=== PATIENT | female | born 1975 | race Hispanic/Latino ===

== ENCOUNTER 2019-10-09 15:57 | Inpatient (IN) | payer OTHER ==
[~2019-10-09] VITALS: Ht 165.1 cm; Wt 84.0 kg
[2019-10-09 18:00] LABS: BASOPHILS # (AUTO) 0.1 (0.0-0.1); BASOPHILS % 0.8 % (0.0-1.0); EOSINOPHILS # (AUTO) 0.3 (0.0-0.4); HEMATOCRIT 30.4 % (34.2-44.1); HEMOGLOBIN 10.1 g/dL (12.0-16.0); LYMPHOCYTES % 20.4 % (18.0-39.1); MEAN CORPUSCULAR HEMOGLOBIN 30.3 pg (28-32); MEAN CORPUSCULAR HGB CONC 33.2 g/dL (31-35); MEAN CORPUSCULAR VOLUME 91.3 fL (81-99); MONOCYTES # (AUTO) 0.7 (0.2-0.8); MONOCYTES % 7.6 % (4.4-11.3); NEUTROPHILS # (AUTO) 6.6 (2.1-6.9); NEUTROPHILS % 67.9 % (38.7-80.0); PLATELET COUNT 153 x10e3/uL (140-360); RED BLOOD COUNT 3.33 x10e6/uL (3.6-5.1); RED CELL DISTRIBUTION WIDTH 12.8 % (11.7-14.4)
[2019-10-09 18:13] LABS: ALBUMIN 2.7 g/dL (3.5-5.0); ALBUMIN/GLOBULIN RATIO 0.7 (0.8-2.0); ANION GAP 20.2 mmol/L (8-16); CREATININE, SERUM 5.3 mg/dL (0.57-1.11)
[2019-10-09] MEDS ORDERED: HYDRALAZINE HCL 20 MG/ML VIAL IV PRN ×2 (18:15→21:30)
[2019-10-09 18:17] LABS: INR 1.02; PROTHROMBIN TIME 13.9 seconds (11.9-14.5)
[2019-10-09 18:18] LABS: PARTIAL THROMBOPLASTIN TIME 36.5 seconds (23.8-35.5)
[2019-10-09 18:24] LABS: CALCIUM 5.6 mg/dL (8.4-10.2); POTASSIUM 5.2 mmol/L (3.5-5.1)
[2019-10-09 18:25] LABS: MAGNESIUM 1.4 MG/DL (1.3-2.1); PHOSPHORUS 9.6 MG/DL (2.3-4.7)
[2019-10-09] MEDS ORDERED: SODIUM CHLORIDE 0.9% 1000ML 2,000 ML IV ONE (18:30)
[2019-10-09] MEDS ORDERED: CALCIUM GLUCONATE 10% INJ 9.3 MEQ in SODIUM CHLORIDE 0.9% 100 ML 100 ML IV ONE (18:30)
[2019-10-09] MEDS ORDERED: MAGNESIUM SULFATE 2GM/50ML 50 ML IV ONE ×2 (18:30→22:30)
[2019-10-09 18:44] LABS: FERRITIN 244.13 ng/mL (4.63-204.00)
--- NOTE | 2019-10-09 19:26 | NUR ---
patient recieved in room
[2019-10-09] MEDS: CALCIUM ACETATE 667 MG GELCAP PO SCH ×2 (19:54→23:46)
[2019-10-09] MEDS ORDERED: ACETAMINOPHEN 325 MG TAB PO PRN (21:15)
[2019-10-09] MEDS ORDERED: CALCIUM CARBONATE 500 MG CHEWABLE TABS PO SCH (21:15)
[2019-10-09] MEDS ORDERED: ONDANSETRON HCL INJ 2MG/ML 2ML 2 MG/ML VIAL IV PRN (21:15)
[2019-10-09 21:46] LABS: CREATININE,URINE RANDOM 73.4 mg/dL (47-110)
[2019-10-09 23:36] LABS: TOTAL PROTEIN, URINE 844.8 mg/dL (1-14)
[2019-10-09] MEDS: SODIUM BICARBONATE 650 MG TAB PO SCH (23:54)
[2019-10-09] MEDS: SODIUM CHLORIDE 0.9% 1000ML 1,000 ML IV SCH (23:54)
[2019-10-10 05:44] LABS: BASOPHILS # (AUTO) 0.1 (0.0-0.1); BASOPHILS % 1.2 % (0.0-1.0); EOSINOPHILS # (AUTO) 0.2 (0.0-0.4); HEMATOCRIT 28.2 % (34.2-44.1); HEMOGLOBIN 9.1 g/dL (12.0-16.0); LYMPHOCYTES # (AUTO) 1.6 (1.0-3.2); LYMPHOCYTES % 22.4 % (18.0-39.1); MEAN CORPUSCULAR HEMOGLOBIN 29.8 pg (28-32); MEAN CORPUSCULAR HGB CONC 32.3 g/dL (31-35); MEAN CORPUSCULAR VOLUME 92.5 fL (81-99); MONOCYTES # (AUTO) 0.7 (0.2-0.8); MONOCYTES % 10.3 % (4.4-11.3); NEUTROPHILS # (AUTO) 4.4 (2.1-6.9); PLATELET COUNT 139 x10e3/uL (140-360); RED BLOOD COUNT 3.05 x10e6/uL (3.6-5.1); RED CELL DISTRIBUTION WIDTH 12.8 % (11.7-14.4)
[2019-10-10] MEDS: SODIUM CHLORIDE 0.9% 1000ML 1,000 ML IV SCH ×3 (05:58→19:57)
[2019-10-10 06:07] LABS: ALBUMIN 2.3 g/dL (3.5-5.0); ALBUMIN/GLOBULIN RATIO 0.7 (0.8-2.0); CREATININE, SERUM 4.93 mg/dL (0.57-1.11); PHOSPHORUS 8.2 MG/DL (2.3-4.7)
[2019-10-10 06:13] LABS: CALCIUM 6.3 mg/dL (8.4-10.2)
--- NOTE | 2019-10-10 07:04 | NUR ---
DR ASHOK HARRIS FOR CRITICAL CALCIUM
--- NOTE | 2019-10-10 07:30 | NUR ---
DISCUSSED WITH DR PULIDO CHEMISTY LABS THIS MORNING, RECIEVED ORDERS FOR CRITICAL CALCIUM.
--- NOTE | 2019-10-10 07:31 | NUR ---
REPORT GIVEN TO MARGIE HANDLEY
[2019-10-10] MEDS ORDERED: CALCIUM CARBONATE 500 MG CHEWABLE TABS PO SCH (08:00)
[2019-10-10] MEDS ORDERED: SODIUM CHLORIDE 0.9% 1000ML 1,000 ML IV ONE (08:15)
[2019-10-10] MEDS ORDERED: SOD POLYSTYRENE SULFONATE SUSP 15 GM/60 ML BTL PO ONE (08:15)
[2019-10-10] MEDS ORDERED: INSULIN REGULAR, HUMAN 100 UNIT/1 ML 3ML VIAL IV ONE (08:15)
[2019-10-10] MEDS ORDERED: ALBUTEROL SULF 0.083% NEB SOLN 3 ML NEB NEB STA (08:15)
[2019-10-10] MEDS ORDERED: DEXTROSE 50% SYRINGE 50 ML IV ONE (08:15)
[2019-10-10] MEDS ORDERED: SODIUM BICARBONATE 8.4% 50 ML VIAL IV STA (08:15)
[2019-10-10] MEDS: SODIUM BICARBONATE 650 MG TAB PO SCH ×2 (08:27→20:03)
[2019-10-10] MEDS: CALCIUM ACETATE 667 MG GELCAP PO SCH ×3 (09:07→20:03)
[2019-10-10] MEDS ORDERED: ONDANSETRON HCL8 MG PO (09:14)
[2019-10-10] MEDS ORDERED: HYDROXYCHLOROQ200 MG PO (09:14)
[2019-10-10] MEDS ORDERED: FUROSEMIDE40 MG PO (09:14)
[2019-10-10] MEDS ORDERED: ATORVASTATIN CA10 MG PO (09:14)
[2019-10-10] MEDS ORDERED: LOSARTAN POTAS100 MG PO (09:14)
[2019-10-10] MEDS ORDERED: CALCIUM GLUCONATE 10% INJ 13.95 MEQ in SODIUM CHLORIDE 0.9% 100 ML 100 ML IV ONE (09:15)
--- NOTE | 2019-10-10 10:22 | Diagnostic Imaging Report ---
EXAM: Renal Ultrasound INDICATION: ^ARF ^Y COMPARISON: None TECHNIQUE: Transverse and longitudinal images of the kidneys and bladder were obtained. FINDINGS: Right Kidney: Length: 9.8 cm Appearance: Increased echogenicity. Collecting system: No hydronephrosis Stones: None Cyst/Mass: None Left Kidney: Length: 9.4 cm Appearance: Slightly increased echogenicity. Collecting system: No hydronephrosis Stones: None Cyst/Mass: None Bladder: No mass or calculus. Bilateral ureteral jets visualized. Prevoid volume estimate of 542cc. IMPRESSION: No hydronephrosis or renal calculi. Increased renal parenchymal echogenicity right greater than left, compatible with medical renal disease. Signed by: Milli Burgess MD on 10/10/2019 10:19 AM
[2019-10-10] MEDS ORDERED: METHYLPREDNISOLONE SOD SUCC 1,000 MG/8 ML VIAL IV SCH (11:15)
[2019-10-10] MEDS: METHYLPREDNISOLONE SOD SUCC 1,000 MG in SODIUM CHLORIDE 0.9% 100 ML IV SCH (12:00)
--- NOTE | 2019-10-10 12:00 | Consultation ---
DATE OF CONSULTATION: 10/10/2019 Renal Consultation REASON FOR CONSULTATION: Acute kidney injury. HISTORY OF PRESENT ILLNESS: A 44-year-old female with history of lupus and hypertension, was sent from her primary care's office to [facility] for abnormal labs. The patient denies having any history of kidney disease in the past and has had hypertension for approximately 2 years. The patient developed upper respiratory infection, developed nausea, fatigue, weakness, some anorexia, went to see her primary care physician and was sent to the hospital. The patient denies taking any txst-lkg-qdazqtw medications including NSAIDs. REVIEW OF SYSTEMS: A 14-point review of systems completed. All systems negative other than mentioned in the HPI. PAST MEDICAL HISTORY: 1. SLE. 2. Hypertension. PAST SURGICAL HISTORY: Valve replacement. SOCIAL HISTORY: No tobacco. No alcohol. No IV drugs. FAMILY HISTORY: No family history of kidney disease or lupus. ALLERGIES: NO KNOWN DRUG ALLERGIES. CURRENT MEDICATIONS: See list. PHYSICAL EXAMINATION: VITAL SIGNS: Blood pressure 145/94, pulse 75, respiratory rate 18, and temperature 98.7. GENERAL: No apparent distress. HEENT: Oropharynx clear. No scleral icterus. No peripheral edema. NECK: Supple. No elevation in jugular venous pressure. No lymphadenopathy. CHEST: Clear to auscultation anteriorly bilaterally. CARDIOVASCULAR: Regular rate and rhythm. No murmurs or rubs. ABDOMEN: Soft. Positive bowel sounds. No tenderness. No rebound. EXTREMITIES: No edema. No clubbing or cyanosis. SKIN: Warm. LABORATORY DATA: Sodium 140, potassium 4, chloride 113, CO2 14, BUN 61, creatinine 4.93 down from 5.3, estimated GFR of 10, calcium 6.3, phosphorus 8.2, and albumin 2.3. White count 6.9, hemoglobin 9.1, hematocrit 28.2, and platelets 13. Urine protein/creatinine ratio 11. ASSESSMENT AND PLAN: 1. Acute kidney injury versus chronic kidney disease, suspect the patient may have lupus nephritis. She has nephrotic range proteinuria. We will do renal ultrasound if her kidneys are not atrophic. We will do kidney biopsy. We will check serologies and may consider starting the patient empirically on prednisone depending on the above studies. 2. Euvolemic on exam. 3. Hypertension. We will titrate blood pressure medications. 4. Metabolic acidosis. We will put the patient on sodium bicarbonate. 5. Anemia with iron saturation of 16. We will give IV iron. May need Epogen. 6. Hyperphosphatemia. The patient on PhosLo. MD SHASHI Rodriguez/JANE /[id number]
[2019-10-10 12:13] LABS: BILIRUBIN,URINE NEGATIVE (NEGATIVE); CLARITY,URINE HAZY (CLEAR); COLOR,URINE YELLOW (YELLOW); KETONES,URINE NEGATIVE (NEGATIVE); LEUKOCYTE ESTERASE ,URINE NEGATIVE (NEGATIVE); NITRITE,URINE NEGATIVE (NEGATIVE); PROTEIN,URINE DIPSTICK 3+ (NEGATIVE); URINE UROBILINOGEN 0.2 mg/dL (0.2 - 1)
[2019-10-10 12:14] LABS: BACTERIA,URINE MANY /HPF; EPITHELIAL CELLS,URINE MANY /LPF
--- NOTE | 2019-10-10 13:20 | NUR ---
PATIENT RECEIVED FROM ER PER WHEEL CHAIR. ABLE TO TRANSFER SELF FROM WHEEL CHAIR TO BED. ALERT AND VERBALLY RESPONSIVE, MOSTLY ALBANIAN SPEAKING. DENIED PAIN AT THIS TIME. SKIN WARM AND DRY TO TOUCH, RESPIRATION EVEN AND UNLABORED. TELEMETRY BOX 19 IN PLACED. PATIENT ORIENTED TO SURROUNDING. BED IN LOWER POSITION AND LOCKED, CALL LIGHT AT REACH. INSTRUCTED TO CALL FOR ASSISTANCE NEEDED.
[2019-10-10 13:35] VITALS: BP 151/89
[2019-10-10 13:42] VITALS: BP 151/89
[2019-10-10 14:08] VITALS: BP 151/89
[2019-10-10 15:19] VITALS: BP 167/92
--- NOTE | 2019-10-10 16:06 | NUR ---
PATIENT IN BED RESTING WITH EYES CLOSED, NO DISTRESS NOTED. CALL LIGHT AT REACH.
--- NOTE | 2019-10-10 19:00 | NUR ---
RECEIVED PATIENT IN BEDSIDE REPORT. PATIENT RESTING IN BED AT THIS TIME. NO PAIN REPORTED. NO S&S OF DISTRESS NOTED. BED LOCKED IN LOWEST POSITION, SIDE RAILS UPX2, CALL LIGHT IN REACH.
[2019-10-10 20:00] VITALS: BP 173/99
[2019-10-10] MEDS: CALCIUM CARBONATE 500 MG CHEWABLE TABS PO SCH (20:03)
[2019-10-10 20:09] VITALS: BP 173/99
[2019-10-10] MEDS: AMLODIPINE BESYLATE 10 MG TAB PO SCH (20:09)
[2019-10-10] MEDS: ATORVASTATIN 10 MG TAB PO SCH (20:09)
--- NOTE | 2019-10-10 21:30 | NUR ---
PATIENT REFUSED HIBICLENS SHOWER AT THIS TIME, STATING IT WAS TOO COLD. WILL PROVIDE HCG WIPES IN AM PRIOR TO PROCEDURE.
--- NOTE | 2019-10-11 02:50 | History and Physical ---
HISTORY OF PRESENT ILLNESS: The patient was seen early this morning at bedside with the nursing staff. This is a 44-year-old female, who has a history of lupus, who apparently was on treatment seeing a ferris wheel attendant in [place], Dr. Dumont. The patient was sent in by her primary care physician due to abnormal chemistries to the [facility] to be further evaluated. The patient was admitted, found to have elevated creatinine, hypocalcemia, hyperphosphatemia. After further discussion with the patient and interviewing her, she reports that she was on immunosuppression as before, but she quit taking them about May 2019 of this year. She was told by her ferris wheel attendant to discontinue the medications and that her labs were found to be "normal." The patient now reports with worsening renal failure. She denies any systemic pain or any other complaints. Denies any petechial rash. No fever, no cough, no congestion. Denies any NSAID usage or any frox-glm-bxymswe medications including no herbal supplements. The patient is seen and evaluated at bedside on the medical floor. The patient is currently doing well with no other issues at this time. Nephrology was consulted. There is some concern that the patient may have some lupus nephritis, in which the patient was started on Solu-Medrol pulse doses. REVIEW OF SYSTEMS: Pertinent positives: Generalized weakness, fatigue. Pertinent negatives: Denies any chest pain, palpitation, nausea, vomiting, diarrhea, dysuria, hematuria, frequency, urgency, lightheadedness, dizziness, abdominal pain, headaches, shortness of breath, cough, congestion, fever, or any other complaints. The rest of 14-point review of systems are reviewed with the patient and are negative. ALLERGIES: NO KNOWN DRUG ALLERGIES. HOME MEDICATIONS: Lipitor, Lasix, hydroxychloroquine, and losartan. PAST MEDICAL HISTORY: She has systemic lupus, hyperlipidemia, and hypertension. PAST SURGICAL HISTORY: Reports none. FAMILY HISTORY: Hypertension, diabetes. SOCIAL HISTORY: No drugs. No alcohol. Does not smoke. Good social support. LABORATORY FINDINGS: Show white count 6.9, hemoglobin 9.1, hematocrit 28, platelets of 139. Coagulation; PT 13, INR 1, PTT 36. Chemistries; sodium 140, potassium 4, chloride 113, bicarb 14, anion gap of 17, BUN 61, creatinine is 4.9, glucose 77, calcium 6.3, phosphorus 8.2, magnesium 2. Iron saturation 16%, ferritin 244. LFTs within normal range. Troponin 0.12. Albumin was 2.3. Urinalysis, concerning for underlying UTI. Microbiology, none performed. IMAGING STUDIES: Renal ultrasound shows a right kidney of 9.8 cm and left kidney of 9.4 cm. No hydronephrosis or renal calculi. Increased renal parenchymal echogenicity, right greater than left, compatible with medical renal disease. PHYSICAL EXAMINATION: VITAL SIGNS: Temperature is 97.8, pulse 85, respiratory rate is 18, blood pressure is 167/92, and pulse ox 97% on room air. GENERAL: No acute distress. Alert and oriented x3. Cooperative on examination. HEENT: Head is normocephalic, atraumatic. Eyes; pupils are equal, round, and reactive to light bilaterally. Extraocular movements intact bilaterally. NECK: Supple. Good range of motion. Throat; no evidence of any erythema or exudates in the posterior pharynx. Has poor dentition. PULMONARY: Clear to auscultation bilaterally. No wheezing, rales, or rhonchi. No crackles appreciated. CARDIOVASCULAR: Positive S1 and S2. No murmurs, rubs, or gallops appreciated. ABDOMEN: Soft, nondistended, nontender to palpation. Bowel sounds present. MUSCULOSKELETAL: Strength is 5/5 throughout. No evidence of any muscle deficits on examination. No weakness appreciated. NEUROLOGIC: Cranial nerves II through XII grossly intact. No evidence of any neurological deficits on exam. SKIN: Intact, warm to touch. Good cap refill. PSYCHIATRIC: Normal affect and mood. EXTREMITIES: No edema. Good range of motion throughout. IMPRESSION/PLAN: 1. Acute kidney injury on chronic kidney disease stage 4-we do not know the patient's true baseline creatinine, but it seems that the patient likely has significant chronic disease. After further interview with the patient, the patient apparently had lupus, was on treatment apparently, quit taking treatment back in May of this year. My concern, she may have developed lupus nephritis and also likely has systemic lupus. At this time, we will continue with IV fluids. Nephrology was consulted. Scheduled for renal biopsy to determine the stage of her lupus nephritis, which is the likely culprit of her renal failure. Nephrology was consulted. We will monitor very closely. 2. Secondary hyperparathyroidism-intact PTH ordered, phosphorus was elevated, started on PhosLo. Hypocalcemia, started on calcium carbonate. 3. Metabolic acidosis secondary to renal failure. 4. Hypertension-start on oral Norvasc, hold losartan due to acute renal failure. 5. Anemia of chronic disease as well as chronic kidney disease-current hemoglobin is 9.1. Iron saturation was found to be 16%. We will start her on Ferrlecit, iron infusion, and eventually was started on some Procrit. 6. Type 2 diabetes-insulin sliding scale, Accu-Cheks, A1c. 7. Systemic lupus-continue with hydroxychloroquine, currently receiving Solu-Medrol 1 g daily x3 days for concerns for lupus nephritis. 8. Nutrition: Diabetic. 9. PT/OT evaluation. 10. Lovenox for DVT prophylaxis after renal biopsy. 11. Consultants: Nephrology, which I discussed this plan of care with him over the phone. MD RUPESH Butt/JANE /[id number]
[2019-10-11 04:00] VITALS: BP 133/74
[2019-10-11 06:11] LABS: HEMATOCRIT 27.5 % (34.2-44.1); HEMOGLOBIN 9.2 g/dL (12.0-16.0); LYMPHOCYTES # (AUTO) 0.7 (1.0-3.2); LYMPHOCYTES % 13.4 % (18.0-39.1); MEAN CORPUSCULAR HEMOGLOBIN 30.2 pg (28-32); MEAN CORPUSCULAR HGB CONC 33.5 g/dL (31-35); MEAN CORPUSCULAR VOLUME 90.2 fL (81-99); MONOCYTES % 0.4 % (4.4-11.3); NEUTROPHILS # (AUTO) 4.5 (2.1-6.9); NEUTROPHILS % 85.6 % (38.7-80.0); PLATELET COUNT 159 x10e3/uL (140-360); RED BLOOD COUNT 3.05 x10e6/uL (3.6-5.1); RED CELL DISTRIBUTION WIDTH 12.6 % (11.7-14.4)
[2019-10-11 06:27] LABS: INR 1.02; PROTHROMBIN TIME 13.9 seconds (11.9-14.5)
[2019-10-11 06:36] LABS: ANION GAP 16.1 mmol/L (8-16); CALCIUM 7.3 mg/dL (8.4-10.2); CREATININE, SERUM 5.12 mg/dL (0.57-1.11); POTASSIUM 4.1 mmol/L (3.5-5.1)
[2019-10-11 08:00] VITALS: BP 135/82
[2019-10-11] MEDS: AMLODIPINE BESYLATE 10 MG TAB PO SCH (08:31)
[2019-10-11] MEDS: CALCIUM ACETATE 667 MG GELCAP PO SCH ×3 (08:31→20:28)
[2019-10-11] MEDS: SODIUM BICARBONATE 650 MG TAB PO SCH ×2 (08:32→17:32)
[2019-10-11] MEDS: HYDROXYCHLOROQUINE SULFATE 200 MG TAB PO SCH (08:32)
[2019-10-11] MEDS ORDERED: FUROSEMIDE 40 MG TAB PO SCH (09:00)
[2019-10-11] MEDS ORDERED: SODIUM BICARBONATE 8.4% 150 ML in STERILE WATER IV SOLN 1,000 ML IV ONE (09:30)
--- NOTE | 2019-10-11 09:40 | NUR ---
Pt going for liver biopsy at this time. 0 s/s acute distress noted at time of transfer.
[2019-10-11] MEDS ORDERED: LIDOCAINE HCL 1% LOCAL INJ 20 ML VIAL ONE (09:43)
[2019-10-11] MEDS ORDERED: FENTANYL CITRATE/PF 100MCG/2 ML INJ ONE (10:54)
[2019-10-11] MEDS ORDERED: SODIUM CHLORIDE 0.9% 500ML 500 ML ONE (10:55)
[2019-10-11] MEDS ORDERED: MIDAZOLAM HCL 2 MG/2 ML VIAL ONE (11:00)
[2019-10-11] MEDS: SODIUM FERRIC GLUCONATE COMPLX 125 MG in SODIUM CHLORIDE 0.9% 100 ML 100 ML IV SCH (12:30)
--- NOTE | 2019-10-11 12:30 | NUR ---
Pt returned to floor from renal biopsy at this time. Pt aox4 and able to verbalize needs. Denies any pain at this time. Renal biopsy was done on the left side and was closed with gel foam. Breaths are even and unlabored.
--- OUTSIDE RECORDS SUMMARY | 2019-10-11 14:00 | XMS REPORT ---
Author Author [facility] Address Unknown Phone Unavailable Care Team Providers Care Retail Sales Director Name Role Phone Debra LUCAS Unavailable Unavailable Payers Payer Name Policy Type Policy Number Effective Date Expiration Date Problems This patient has no known problems. Allergies, Adverse Reactions, Alerts Allergy Name Allergy Type Status Severity Reaction(s) Onset Date Inactive Date Treating Clinician Comments No Known Allergies DA Active U 2015-10-17 00:00:00 Medications This patient has no known medications. Results Test Description Test Time Test Comments Text Results Atomic Results Result Comments US RENAL RETROPERITONEAL COMP 2019-10-10 10:17:00 [facility] [address] [address] Patient Name: FEDERICO OWENS MR #: [id number] : 1975 Age/Sex: 44/F Req #: [id number] Adm Physician: OMA LUCAS MD Ordered by: LEORA PULIDO MD Report #: [id number] Location: [facility] Room/Bed: [place] [address] Procedure: [id number] US/US RENAL RETROPERITONEAL COMP Exam Date: Exam Time: REPORT STATUS: Signed EXAM: Renal Ultrasound INDICATION: ARF Y COMPARISON: None TECHNIQUE: Transverse and longitudinal images of the kidneys and bladder were obtained. FINDINGS: Right Kidney: Length: 9.8 cm Appearance: Increased echogenicity. Collecting system: No hydronephrosis Stones: None Cyst/Mass: None Left Kidney: Length: 9.4 cm Appearance: Slightly increased echogenicity. Collecting system: No hydronephrosis Stones: None Cyst/Mass: None Bladder: No mass or calculus. Bilateral ureteral jets visualized. Prevoid volume estimate of 542cc. IMPRESSION: No hydronephrosis or renal calculi. Increased renal parenchymal echogenicity right greater than left, compatible with medical renal disease. Signed by: Celina Pollard MD on 10/10/2019 10:19 AM Dictated By: CELINA POLLARD MD [id number] Transcribed By: LUBA on 10/10/19 1019 COPY TO: LEORA PULIDO MD
--- OUTSIDE RECORDS SUMMARY | 2019-10-11 14:00 | XMS REPORT ---
Author Author Admin, Humphrey Organization [facility] Address [address] [address] Phone Allergies, Adverse Reactions, Alerts Allergy Name Reaction Description Start Date Severity Status Provider No Known Allergies Carmel Tee Conditions or Problems Problem Name Problem Code Onset Date Status Entry Date Provider Comment Standard Description Annotate Lupus 710.0 Active Sedrick Luna MD Systemic lupus erythematosus Proteinuria 791.0 Active Sedrick Luna MD Proteinuria Medication List Medication Instructions Start Date Stop Date Generic Name NDC Status Provider Patient Instruction No Drug Therapy Prescribed - none known did ask Carmel Tee Vital Signs Date Name Value Unit Range Description blood pressure, diastolic 89 mm[Hg] BP buchanan blood pressure, systolic 136 mm[Hg] BP sys height E&M 64 [in_us] Bdy height pulse rate E&M 89 /min Heart rate respiratory rate E&M 20 /min Resp rate temperature E&M 98.4 [degF] Body temperature weight E&M 176.20 [lb_av] Weight Measured Diagnostic Results Date Name Value Unit Range Description Append: Acute Visit - Lupus/proteinuria - Urinalysis nitrite, urine, semiquantitative negative urobilinogen, urine, semiquantitative (dipstick) negative protein, urine, semiquantitative (dipstick) 4+ specific gravity, urine 1.025 pH, urine, semiquantitative 5.5 blood in urine (hemoglobin) by dipstick negative bilirubin, urine negative glucose, urine, semiquantitative negative urine color yellow leukocyte esterase, urine, by dipstick negative appearance, urine clear ketones, urine, by test strip negative Encounters Date Encounter Provider Code Facility 14:34:40 CDT Est Patient Exp Problem - 04403 Sedrick Luna MD CPT-26943 [facility] 17:01:26 CDT New Patient Detailed - 00281 Sedrick Luna MD CPT-62938 [facility] Procedures Code Procedure Name Date Entry Date Standard Description CPT-85553 Urinalysis - Dip only - In House 17:02:59 CDT
[2019-10-11] MEDS: METHYLPREDNISOLONE SOD SUCC 1,000 MG in SODIUM CHLORIDE 0.9% 100 ML IV SCH (14:11)
[2019-10-11 16:00] VITALS: BP 120/74
--- NOTE | 2019-10-11 17:05 | Diagnostic Imaging Report ---
PROCEDURE: Ultrasound-guided biopsy Procedural Personnel Attending physician(s): Milli Burgess MD Fellow physician(s): None Resident physician(s): None Advanced practice provider(s): None Pre-procedure diagnosis: Acute kidney injury Post-procedure diagnosis: Same Indication: Organ dysfunction Previous biopsy of same target (QCDR): No Additional clinical history: None Complications: No immediate complications. IMPRESSION: Ultrasound-guided nonfocal biopsy of the left renal cortex. Plan: Specimen(s) sent for evaluation. PROCEDURE SUMMARY: - Percutaneous US-guided nonfocal left renal biopsy - Additional procedure(s): None PROCEDURE DETAILS: Pre-procedure Reference imaging for biopsy target: None Consent: Informed consent for the procedure including risks, benefits and alternatives was obtained and time-out was performed prior to the procedure. Preparation: The site was prepared and draped using maximal sterile barrier technique including cutaneous antisepsis. Anesthesia/sedation Level of anesthesia/sedation: Moderate sedation (conscious sedation) 1mg Versed, 50mcg Fentanyl Anesthesia/sedation administered by: Independent trained observer under attending supervision with continuous monitoring of the patient?s level of consciousness and physiologic status Total intra-service sedation time (minutes): 30 Imaging prior to biopsy The patient was positioned prone. Initial ultrasound was performed. Biopsy target: Left renal cortex Other findings: None Biopsy Local anesthesia was administered. Under US guidance, the biopsy needle was advanced to the target and biopsy was performed. Coaxial needle: 17 gauge Core needle biopsy device: Creditableno Core needle size: 18 Number of core specimens: 3 On-site biopsy touch preparation: Yes Additional sampling recommendations: None Preliminary assessment of sample adequacy: Adequate Needle removal The biopsy needle was removed and a sterile dressing was applied. Tract embolization: Gelfoam slurry Imaging following biopsy Immediate post-biopsy ultrasound was performed. Post-biopsy imaging findings: No hematoma Additional Details Additional description of procedure: None Equipment details: None Specimens removed: Biopsy samples as detailed above Estimated blood loss (mL): Less than 10 Standardized report: [id number] Attestation Signer name: Milli Burgess MD I attest that I was present for the entire procedure. I reviewed the stored images and agree with the report as written. Signed by: Milli Burgess MD on 10/11/2019 5:01 PM
[2019-10-11 19:15] VITALS: BP 135/81
--- NOTE | 2019-10-11 19:15 | NUR ---
patient received awake, alert, lying quietly in bed. vss. no c/o pain noted. ivf continue to infuse without difficulty. pm assessment complete. family noted at the bedside. patient instructed to call for assistance when needed.
[2019-10-11 20:00] VITALS: BP 135/81
[2019-10-11] MEDS: CALCIUM CARBONATE 500 MG CHEWABLE TABS PO SCH (20:28)
[2019-10-11] MEDS: ATORVASTATIN 10 MG TAB PO SCH (20:28)
[2019-10-12] VITALS (8 sets, daily range): BP systolic 121–149; BP diastolic 71–83
--- NOTE | 2019-10-12 00:02 | Progress Note ---
DATE: 10/11/2019 Medicine Progress Note SUBJECTIVE: The patient underwent renal biopsy today. She is still getting pulse doses of steroids. She states she is doing well. Good urine output. No overnight events. OBJECTIVE: VITAL SIGNS: Temperature is 98.1, pulse 100, respiratory rate is 20, blood pressure is 135/81, and pulse ox 95% on room air. GENERAL: Not in acute distress. Alert and oriented x3. Cooperative on examination. HEENT: Head is normocephalic, atraumatic. Eyes; pupils are equal, round, and reactive to light bilaterally. Extraocular movements intact bilaterally. NECK: Supple. Good range of motion. Throat; no evidence of any erythema or exudates in the posterior pharynx. Has poor dentition. PULMONARY: Clear to auscultation bilaterally. No wheezing, rales, or rhonchi. No crackles appreciated. CARDIOVASCULAR: Positive S1 and S2. No murmurs, rubs, or gallops appreciated. ABDOMEN: Soft, nondistended, and nontender to palpation. Bowel sounds present. MUSCULOSKELETAL: Strength is 5/5 throughout. No evidence of any muscle deficits on examination. No weakness appreciated. NEUROLOGICAL: Cranial nerves 2 through 12 are grossly intact. No evidence of any neurological deficits on exam. SKIN: Intact. Warm to touch. Good cap refill. PSYCHIATRIC: Normal affect and mood. EXTREMITIES: No edema. Good range of motion throughout. LABORATORY FINDINGS: Show white count 5.2, hemoglobin 9.2, hematocrit 27, and platelets of 159. Chemistry reviewed shows sodium 141, potassium 4.1, chloride 116, bicarbonate is 13, started on bicarb drip, anion gap of 16, BUN is 59, creatinine is 5.1, glucose 149, calcium repeat is 7.3, phosphorus is still elevated at 8.2. Iron saturation is 16%. LFTs were noted. Microbiology was not sent for urine culture. IMAGING STUDIES: Renal biopsy performed today, pending final results. IMPRESSION: 1. Acute kidney injury on chronic kidney disease stage 4 - we do not know the patient's true baseline creatinine. She does have a history of lupus and were suspected the patient likely has systemic lupus as well as lupus nephritis. Her renal ultrasound was reviewed. She is on pulse doses of steroids. She did undergo a renal biopsy today. Nephrology is consulted and monitor very closely. 2. Secondary hyperparathyroidism. Intact PTH, order is still pending. Phosphorus elevated still, but downtrending. Continue with PhosLo. Calcium is improved. She is on calcium carbonate. Metabolic acidosis due to renal failure-started on bicarbonate drip. 3. Hypertension, blood pressure much improved. Continue to follow very closely. Hold losartan. Continue with Norvasc. 4. Anemia of chronic disease due to chronic kidney disease. Continue on iron infusions. 5. Type 2 diabetes-insulin sliding scale, Accu-Cheks, A1c. 6. Systemic lupus. Continue with hydroxychloroquine. She is still on pulse doses of steroids x3 days, concern for underlying lupus nephritis. 7. Nutrition: Type 2 diabetes. 8. PT/OT evaluation. 9. Lovenox for DVT prophylaxis. Tomorrow because the patient had renal biopsy today. 10. Consultants: Nephrology in which the case was discussed with them. The patient will likely be here through the weekend to see if there is any resolution of the renal failure. MD RUPESH Butt/MODL /[id number]
[2019-10-12 05:59] LABS: HEMATOCRIT 25.5 % (34.2-44.1); HEMOGLOBIN 8.5 g/dL (12.0-16.0); LYMPHOCYTES # (AUTO) 0.7 (1.0-3.2); LYMPHOCYTES % 7.4 % (18.0-39.1); MEAN CORPUSCULAR HEMOGLOBIN 30.2 pg (28-32); MEAN CORPUSCULAR HGB CONC 33.3 g/dL (31-35); MEAN CORPUSCULAR VOLUME 90.7 fL (81-99); MONOCYTES # (AUTO) 0.1 (0.2-0.8); NEUTROPHILS # (AUTO) 8.9 (2.1-6.9); NEUTROPHILS % 90.5 % (38.7-80.0); PLATELET COUNT 157 x10e3/uL (140-360); RED BLOOD COUNT 2.81 x10e6/uL (3.6-5.1); RED CELL DISTRIBUTION WIDTH 12.6 % (11.7-14.4)
[2019-10-12 06:21] LABS: ANION GAP 16.6 mmol/L (8-16); CREATININE, SERUM 5.16 mg/dL (0.57-1.11); PHOSPHORUS 5.7 MG/DL (2.3-4.7); POTASSIUM 3.6 mmol/L (3.5-5.1)
[2019-10-12 06:25] LABS: CALCIUM 6.7 mg/dL (8.4-10.2)
[2019-10-12] MEDS: AMLODIPINE BESYLATE 10 MG TAB PO SCH (08:02)
[2019-10-12] MEDS: SODIUM BICARBONATE 650 MG TAB PO SCH ×2 (08:03→16:52)
[2019-10-12] MEDS: HYDROXYCHLOROQUINE SULFATE 200 MG TAB PO SCH (08:03)
[2019-10-12] MEDS: CALCIUM ACETATE 667 MG GELCAP PO SCH ×3 (08:03→20:27)
[2019-10-12] MEDS: SODIUM FERRIC GLUCONATE COMPLX 125 MG in SODIUM CHLORIDE 0.9% 100 ML 100 ML IV SCH (08:37)
[2019-10-12] MEDS: METHYLPREDNISOLONE SOD SUCC 1,000 MG in SODIUM CHLORIDE 0.9% 100 ML IV SCH (12:30)
[2019-10-12] MEDS: FAMOTIDINE 20 MG TAB PO SCH ×2 (13:18→16:52)
--- NOTE | 2019-10-12 14:25 | NUR ---
Nutrition Screen Note RD Recommendation for Physician: Continue diet as ordered Plan of Care: RD following, monitoring for tolerance and adequacy Nutrition reason for involvement: Nutrition Risk Trigger - MST Primary Diagnose(s):Acute renal failure, HTN PMH: CKD stage 4, lupus, HTN, anemia, T2DM Ht:65 in Wt:171lb BMI:28.5 kg/m2 IBW:125lb +/-10% RD Assessment: (10/12/19) Chart reviewed. Labs and meds reviewed. Initial encounter with patient. Pt speaks Occitan mostly. Pt denies any difficulty chewing or swallowing. Pt states that she has some nausea. Pt states that she has a " So so" appetite right now. No known food allergies. Current Diet: Renal diet Malnutrition Evaluation 10/12/19) The patient does not meet criteria for a specified degree of malnutrition at this time. Will re-evaluate at follow-up as appropriate. Diet Education Needs Assessment: Diet education not indicated. Nutrition Care Level: Low Signed: Virgilio Morgan RD, LD, CNSC
--- NOTE | 2019-10-12 19:15 | NUR ---
patient received awake, alert, lying quietly in bed. no c/o pain noted. pm assessment complete. patient instructed to call for assistance when needed.
[2019-10-12] MEDS: CALCIUM CARBONATE 500 MG CHEWABLE TABS PO SCH (20:27)
[2019-10-12] MEDS: ATORVASTATIN 10 MG TAB PO SCH (20:27)
[2019-10-13] VITALS (7 sets, daily range): BP systolic 121–157; BP diastolic 68–87
--- NOTE | 2019-10-13 00:18 | Progress Note ---
DATE: 10/12/2019 Medicine Progress Note SUBJECTIVE: The patient is doing much better today with no complaints. She got her 3rd dose of pulse steroids. Renal function has not improved. PHYSICAL EXAMINATION: VITAL SIGNS: Temperature 97.8, pulse 82, respiratory rate is 22, blood pressure is 130/77, pulse ox 96% on room air. LABORATORY FINDINGS: Show white count 9.8, hemoglobin 9.5, hematocrit is 25, platelets of 157. Chemistry sodium 141, potassium is 3.6, chloride 110, bicarb 18, anion gap is 16, BUN 64, creatinine is 5.1, calcium is 6.7, phosphorus is 5.7, magnesium noted. Double-stranded DNA was 28 very positive and really high rheumatoid factor 10.4, p-ANCA and c-ANCA complements pending. Microbiology none. IMAGING STUDIES: Noted. PHYSICAL EXAMINATION: GENERAL: Not in acute distress. Alert and oriented x3. Cooperative on examination. HEENT: Head is normocephalic, atraumatic. Eyes; pupils are equal and reactive to light bilaterally. Extraocular movements are intact bilaterally. NECK: Supple. Good range of motion. MUSCULOSKELETAL: No evidence of muscle deficits on examination. No weakness appreciated. NEUROLOGIC: Cranial nerve II through XII grossly intact. No evidence of any neurological deficits on exam. SKIN: Intact. Warm to touch. Good cap refill. PSYCHIATRIC: Normal affect and mood. EXTREMITIES: No edema. Good range of motion throughout. IMPRESSION: 1. Acute kidney injury on chronic kidney disease stage 4, likely-we do not know the patient's true baseline, but it seemed like the patient likely has chronic disease, now with a creatinine still being 5.1, likely CKD stage 5. It seems like the patient's underlying renal dysfunction is due to a lupus nephritis. Her complements still are actually normal and if you look at her UA and does show some RBCs at 6-10. Several serologies are still pending. Nephrology is managing her renal function. She has already received the 3rd dose of pulse steroids. She did get a renal biopsy on 10/11/2019. 2. Secondary hyperparathyroidism-intact PTH is pending. Phosphorus is down trending. Calcium is still low. She is on PhosLo. She is on sodium bicarbonate tabs for metabolic acidosis. 3. Hypertension-improved. Continue to monitor very closely. Continue with Norvasc. 4. Anemia of chronic disease-she is receiving iron infusions. 5. Type 2 diabetes. Continue with sliding scale Accu-Cheks, A1c. Systemic lupus-continue hydroxychloroquine. She has already received three pulse doses of steroids. She will likely be discharged on oral steroids with outpatient followup with Rheumatology. 1. Nutrition-diabetic diet. 2. PT/OT evaluation. 3. Lovenox for DVT prophylaxis. Consultants are nephrology. We will continue to follow, likely be discharged tomorrow with steroid tapering with close followup with Nephrology. MD RUPESH Butt/MODL /[id number]
[2019-10-13] MEDS: AMLODIPINE BESYLATE 10 MG TAB PO SCH (09:04)
[2019-10-13] MEDS: FAMOTIDINE 20 MG TAB PO SCH ×2 (09:04→16:48)
[2019-10-13] MEDS: PREDNISONE 20 MG TAB PO SCH (09:05)
[2019-10-13] MEDS: HYDROXYCHLOROQUINE SULFATE 200 MG TAB PO SCH (09:05)
[2019-10-13] MEDS: CALCIUM ACETATE 667 MG GELCAP PO SCH ×3 (09:06→20:37)
[2019-10-13] MEDS: SODIUM BICARBONATE 650 MG TAB PO SCH ×2 (09:06→16:48)
[2019-10-13] MEDS: SODIUM FERRIC GLUCONATE COMPLX 125 MG in SODIUM CHLORIDE 0.9% 100 ML 100 ML IV SCH (09:30)
[2019-10-13 10:33] LABS: ANION GAP 18.3 mmol/L (8-16); CREATININE, SERUM 5.14 mg/dL (0.57-1.11); POTASSIUM 3.3 mmol/L (3.5-5.1)
[2019-10-13 10:41] LABS: CALCIUM 6.6 mg/dL (8.4-10.2)
--- NOTE | 2019-10-13 15:15 | NUR ---
Visit made by the Spiritual Care Department Pastoral Visitor, Janet Llanos. PV provided pastoral presence, hospitality, prayer, and supportive listening. Pastoral Visitor informed pt/family of the scope of [employer] and availability. DANIEL DELGADILLO [employer] Spiritual Care Department O: [phone] Pager: [phone] ([phone] number calling from)
[2019-10-13] MEDS: ATORVASTATIN 10 MG TAB PO SCH (20:37)
[2019-10-13] MEDS: CALCIUM CARBONATE 500 MG CHEWABLE TABS PO SCH (20:37)
--- NOTE | 2019-10-13 23:19 | Progress Note ---
DATE: 10/13/2019 Medicine Progress Note SUBJECTIVE: The patient is doing well today with no complaints. No overnight events. LABORATORY DATA: Show CBC stable. Chemistry reviewed shows a potassium of 3.3, replaced. Rest electrolytes show a BUN of 74, creatinine is 5.1 with no change, calcium is 6.6. OBJECTIVE: VITAL SIGNS: Afebrile. Normotensive. Respiratory rate is good. GENERAL: Not in acute distress. Alert and oriented x3. Cooperative on examination. HEENT: Head is normocephalic, atraumatic. Eyes; pupils are equal and reactive to light bilaterally. Extraocular movements are intact bilaterally. NECK: Supple. Good range of motion. Throat; no evidence of erythema or exudates in the posterior pharynx. Has poor dentition. PULMONARY: Clear to auscultation bilaterally. No wheezing, rales, or rhonchi. No crackles appreciated. CARDIOVASCULAR: Positive S1 and S2. No murmurs, rubs, or gallops appreciated. ABDOMEN: Soft, nondistended, nontender to palpation. Bowel sounds present. MUSCULOSKELETAL: Strength is 5/5 throughout. No evidence of muscle deficits on examination. No weakness appreciated. NEUROLOGICAL: Cranial nerves II through XII grossly intact. No evidence of any neurological deficits on exam. SKIN: Intact. Warm to touch. Good cap refill. PSYCHIATRIC: Normal affect and mood. EXTREMITIES: No edema. Good range of motion throughout. IMPRESSION: 1. Acute kidney injury on chronic kidney disease stage 4, unknown patient's true baseline, but seems like her creatinine is probably at her true baseline now. She is likely CKD stage 5 now. It seems like her underlying renal dysfunction from lupus nephritis despite her complements are normal. On anyway, she has already finished her steroids. We will talk with Nephrology tomorrow about discharging her to home with steroid tapering. Renal biopsy is pending for results in which the patient will need to follow up with Nephrology as an outpatient for further evaluation, management, and final results. 2. Secondary hyperparathyroidism intact PTH pending, phosphorus down trending calcium is still low. Continue PhosLo. She is also on sodium bicarbonate tabs for underlying metabolic acidosis. 3. Hypertension improved. Continue with Norvasc. 4. Anemia of chronic disease. Continue with iron infusions. 5. Type 2 diabetes slight insulin sliding scale, Accu-Cheks, A1c. 6. Systemic lupus-continue with hydroxychloroquine-needs to followup with rheumatology as an outpatient. 7. Nutrition diabetic. 8. PT/OT evaluation.. 9. Lovenox for DVT prophylaxis. MD RUPESH Butt/MODL /[id number]
[2019-10-14] VITALS: BP 136/82
[2019-10-14 04:00] VITALS: BP 123/77
[2019-10-14 05:56] LABS: BASOPHILS % 0.1 % (0.0-1.0); HEMATOCRIT 26.9 % (34.2-44.1); HEMOGLOBIN 9.1 g/dL (12.0-16.0); LYMPHOCYTES # (AUTO) 0.8 (1.0-3.2); LYMPHOCYTES % 6.9 % (18.0-39.1); MEAN CORPUSCULAR HEMOGLOBIN 29.9 pg (28-32); MEAN CORPUSCULAR HGB CONC 33.8 g/dL (31-35); MEAN CORPUSCULAR VOLUME 88.5 fL (81-99); MONOCYTES # (AUTO) 0.5 (0.2-0.8); MONOCYTES % 4.5 % (4.4-11.3); NEUTROPHILS # (AUTO) 9.7 (2.1-6.9); NEUTROPHILS % 87.1 % (38.7-80.0); PLATELET COUNT 170 x10e3/uL (140-360); RED BLOOD COUNT 3.04 x10e6/uL (3.6-5.1); RED CELL DISTRIBUTION WIDTH 12.5 % (11.7-14.4)
[2019-10-14 06:15] LABS: ANION GAP 16.1 mmol/L (8-16); CREATININE, SERUM 5.09 mg/dL (0.57-1.11); POTASSIUM 3.1 mmol/L (3.5-5.1)
[2019-10-14 06:19] LABS: CALCIUM 6.5 mg/dL (8.4-10.2)
[2019-10-14] MEDS: FAMOTIDINE 20 MG TAB PO SCH (07:51)
[2019-10-14 08:00] VITALS: BP 149/95
[2019-10-14 08:29] VITALS: BP 123/77
[2019-10-14] MEDS: CALCIUM ACETATE 667 MG GELCAP PO SCH (08:46)
[2019-10-14] MEDS: PREDNISONE 20 MG TAB PO SCH (08:46)
[2019-10-14] MEDS: SODIUM FERRIC GLUCONATE COMPLX 125 MG in SODIUM CHLORIDE 0.9% 100 ML 100 ML IV SCH (08:46)
[2019-10-14] MEDS: HYDROXYCHLOROQUINE SULFATE 200 MG TAB PO SCH (08:46)
[2019-10-14] MEDS: AMLODIPINE BESYLATE 10 MG TAB PO SCH (08:46)
[2019-10-14] MEDS: SODIUM BICARBONATE 650 MG TAB PO SCH (08:46)
[2019-10-14 12:00] VITALS: BP 145/95
[2019-10-14] MEDS ORDERED: ONDANSETRON HCL 4 MG ORAL DISINTEGRATING TAB PO PRN (15:15)
[2019-10-14] MEDS ORDERED: PREDNISONE20 MG PO (15:45)
[2019-10-14] MEDS ORDERED: SODIUM BICARBO650 MG PO (15:46)
[2019-10-14] MEDS ORDERED: PEPCID20 MG PO (15:46)
[2019-10-14] MEDS ORDERED: NORVASC5 MG PO (15:46)
[2019-10-14] MEDS ORDERED: TUMS300 MG (15:47)
--- NOTE | 2019-10-14 17:00 | NUR ---
patient discharged home, prescription given, IV canula removed with tip intact, no ss of infiltration noted, patient aware about f/up appointments. not in any distress, family at bed side. transported via wheelchair to [facility]
--- NOTE | 2019-10-15 01:06 | Discharge Summary ---
FINAL DISCHARGE DIAGNOSES: 1. Acute kidney injury on chronic kidney disease stage 4, presumed to be secondary from systemic lupus and likely lupus nephritis. 2. Secondary hyperparathyroidism. 3. Hypertension. 4. Anemia of chronic disease and renal failure. 5. Type 2 diabetes. 6. Systemic lupus. CONSULTANTS: Nephrology. PHYSICAL EXAMINATION: VITAL SIGNS: Temperature is 96.5, pulse 72, respiratory rate is 20, blood pressure 145/95, pulse ox 98% on room air. LABORATORY FINDINGS: Show white count 11, hemoglobin 9, hematocrit 26.9, platelets of 170. Coagulation; PT 13, INR 1.02, PTT 36.5. Chemistries; sodium 141, potassium 3.1, replaced, chloride 107, bicarb 21, anion gap 16. BUN is 85, creatinine is 5. Glucose 113. Iron saturation was found to be 16%. LFTs within normal range. Troponins were negative. Albumin was 2.3. Urinalysis noted concerns for UTI. Urine protein to creatinine was 11 g proteinuria. Immunological studies, double-stranded DNA was elevated at 28, C3 of 109, C4 of 25. C-ANCA, p-ANCA, and thyroid peroxidase antibodies were all pending. Atypical p-ANCA was pending. Rheumatoid factor was 10.4. MARCI was negative. MICROBIOLOGY: None. IMAGING STUDIES: Renal biopsy shows a right kidney of 9.8 cm and left kidney 9.4 cm. No hydronephrosis. No renal calculi. This is compatible with medical renal disease. Renal biopsy was performed on 10/11/2019 and pathology is pending with outpatient followup needed to get the final results, which this was discussed with the patient. HOSPITAL COURSE: This is a 44-year-old female with known history of systemic lupus, apparently was not taken to immunosuppression as she reports that she was told not to take it by her primary medical administrative in [facility] in May of 2019. The patient presented by her PCP due to abnormal chemistry findings with an elevated creatinine, mild elevation of potassium, as well as in renal failure. The patient was admitted and Nephrology was consulted. Due to the fact that the patient has systemic lupus, it was concerning that the patient may have developed some lupus nephritis in which she was started on pulse doses of Solu-Medrol 1 g daily for the last 3 days. The patient's renal function truly never improved. She maintained on the same creatinine. Electrolytes were replaced accordingly with sodium bicarbonate tabs. Potassium was corrected as well. She was anemic. She was given iron infusion as well as Procrit. She was making urine with no complications. We did discuss with her at length that she needs to follow up with Rheumatology as well as Nephrology as an outpatient. The likely etiology of her renal failure is likely secondary to lupus nephritis. We did get a renal biopsy while here in the hospital stable, but the results were not available upon discharge, in which we discussed this with the patient thoroughly using a asphalt smoother that she was with. It was advised for her to please follow up with the marine habitat resource specialist in 1 week time to get the final pathology results. She is also scheduled for this , 10/17/2019, to get labs drawn and to follow up very closely with them as an outpatient. She verbalized understanding. The patient was back to normal baseline with no other complaints. She was discharged on oral prednisone 80 mg daily for three weeks and then tapering dosing will occur with the marine habitat resource specialist as an outpatient. On the day of discharge, vital signs were stable, labs reviewed and stable. The patient is seen, evaluated, and examined thoroughly on the day of discharge. No other complaints. The patient verbalized understanding and agrees to plan of care to follow up accordingly as an outpatient with the primary care physician in 1 week and the franchise consultant, Nephrology, on 10/17/2019, for lab draws as well as further followup. The patient verbalized understanding and she will follow up very closely with the marine habitat resource specialist here later this week as well as early next week. She was also advised to follow up with a medical administrative in [place] as soon as she gets discharged and she verbalized understanding with all plans of care. MEDICATIONS: See med reconciliation form. DISPOSITION: Home. CONDITION: Stable. DIET: Heart healthy. DISCHARGE INSTRUCTIONS: In the event of any worsening symptoms, the patient was advised to come back to the ED for further evaluation. TIME SPENT: Discharge summary took greater than 35 minutes. Once again, the patient was advised to follow up with Nephrology later this week as well as early next week for further management and care. She verbalized understanding. MD RUPESH Butt/JANE /[id number]
== END 2019-10-14 16:00 | disposition home or self-care (01) | DRG 683 ==
LOC: ER 15:57 → ERHOLD 18:41 → MED/SURG3 10-10 13:10
PROVIDERS: ADMIT Internal Medicine; ATTEND Internal Medicine
PROC: 0TB13ZX Excision of Left Kidney, Percutaneous Approach, Diagnostic (ICD-10-PCS; principal; 2019-10-11)
DX: I12.0 Hypertensive chronic kidney disease with stage 5 chronic kidney disease or end stage renal disease (principal); N17.9 Acute kidney failure, unspecified; N25.81 Secondary hyperparathyroidism of renal origin; E87.2 Acidosis; N18.5 Chronic kidney disease, stage 5; M32.9 Systemic lupus erythematosus, unspecified; E11.22 Type 2 diabetes mellitus with diabetic chronic kidney disease; D63.1 Anemia in chronic kidney disease; Z82.49 Family history of ischemic heart disease and other diseases of the circulatory system; E83.51 Hypocalcemia; E83.42 Hypomagnesemia; E83.39 Other disorders of phosphorus metabolism; Z95.2 Presence of prosthetic heart valve; M32.14 Glomerular disease in systemic lupus erythematosus
CPT/HCPCS: 36415; 50200; 74470; 76770; 76942; 80048; 80053; 81001; 82044; 82570; 82728; 83540; 83735; 84100; 84132; 84156; 84466; 84484; 85025; 85610; 85730; 86021; 86039; 86160; 86225; 86431; 86850; 86900; 93005; 99152; 99285; J0610; J2001; J2250; J2405; J2916; J2930; J3010; J3475; J7030; J7040; J7050; J7512

== ENCOUNTER 2021-02-08 06:31 | Inpatient (IN) | payer OTHER ==
[~2021-02-08] VITALS: Ht 167.6 cm; Wt 85.3 kg
[2021-02-08] VITALS (11 sets, daily range): BP systolic 94–150; BP diastolic 78–119
[~2021-02-08 06:31] MED LIST: ATORVASTATIN CA10 MG PO; FUROSEMIDE40 MG PO; HYDROXYCHLOROQ200 MG PO; LOSARTAN POTAS100 MG PO; NORVASC5 MG PO; ONDANSETRON HCL8 MG PO; PEPCID20 MG PO; PREDNISONE20 MG PO; SODIUM BICARBO650 MG PO; TUMS300 MG
[2021-02-08 07:35] LABS: BASOPHILS # (AUTO) 0.1 (0.0-0.1); BASOPHILS % 0.4 % (0.0-1.0); EOSINOPHILS # (AUTO) 0.1 (0.0-0.4); EOSINOPHILS % 0.5 % (0.0-6.0); HEMATOCRIT 26.4 % (34.2-44.1); HEMOGLOBIN 8.8 g/dL (12.0-16.0); LYMPHOCYTES % 6.7 % (18.0-39.1); MEAN CORPUSCULAR HEMOGLOBIN 32.4 pg (28-32); MEAN CORPUSCULAR HGB CONC 33.3 g/dL (31-35); MEAN CORPUSCULAR VOLUME 97.1 fL (81-99); MONOCYTES # (AUTO) 0.6 (0.2-0.8); NEUTROPHILS # (AUTO) 12.9 (2.1-6.9); NEUTROPHILS % 87.7 % (38.7-80.0); PLATELET COUNT 189 x10e3/uL (140-360); RED BLOOD COUNT 2.72 x10e6/uL (3.6-5.1); RED CELL DISTRIBUTION WIDTH 12.4 % (11.7-14.4)
[2021-02-08 08:04] LABS: ALBUMIN/GLOBULIN RATIO 0.8 (0.8-2.0); ANION GAP 24.6 mmol/L (8-16); CALCIUM 9.1 mg/dL (8.4-10.2); CREATININE, SERUM 15.93 mg/dL (0.57-1.11); POTASSIUM 4.6 mmol/L (3.5-5.1)
[2021-02-08] MEDS ORDERED: FUROSEMIDE INJ 10 MG/ML 4 ML VIAL IV ONE (08:15)
[2021-02-08 08:51] LABS: CLARITY,URINE CLEAR (CLEAR); COLOR,URINE YELLOW (YELLOW); KETONES,URINE NEGATIVE (NEGATIVE); LEUKOCYTE ESTERASE ,URINE NEGATIVE (NEGATIVE); NITRITE,URINE NEGATIVE (NEGATIVE); PROTEIN,URINE DIPSTICK >=300 (NEGATIVE); URINE UROBILINOGEN 0.2 mg/dL (0.2 - 1)
[2021-02-08 09:07] LABS: BACTERIA,URINE FEW /HPF; EPITHELIAL CELLS,URINE MODERATE /LPF; RBC,URINE 0-5 /HPF (0-5)
[2021-02-08 09:09] LABS: TRANSITIONAL EPI CELLS,URINE FEW
[2021-02-08] MEDS ORDERED: DOXYCYCLINE HY100 MG PO (09:17)
[2021-02-08] MEDS ORDERED: ASPIRIN 81 MG CHEW TAB PO ONE (10:15)
[2021-02-08] MEDS ORDERED: PIPERACILLIN/TAZO 4.5 GM 100 ML IV STA (10:23)
[2021-02-08] MEDS ORDERED: SEVELAMER CARB800 MG PO (13:34)
[2021-02-08] MEDS ORDERED: LOSARTAN POTAS100 MG PO (13:34)
[2021-02-08] MEDS ORDERED: CALCITRIOL0.5 MCG PO (13:34)
[2021-02-08] MEDS ORDERED: ACETAMINOPHEN 325 MG TAB PO PRN (14:30)
[2021-02-08] MEDS ORDERED: HYDRALAZINE HCL 20 MG/ML VIAL IV PRN (14:30)
[2021-02-08] MEDS ORDERED: ONDANSETRON HCL INJ 2MG/ML 2ML 2 MG/ML VIAL IV PRN (14:30)
[2021-02-08 14:40] LABS: CREATINE KINASE MB 9.7 ng/mL (0-5.0)
[2021-02-08] MEDS ORDERED: LEVALBUTEROL HCL SOLN NEBU 0.63 MG/3 ML NEB INH PRN (14:45)
[2021-02-08] MEDS: IPRATROPIUM BROMIDE 0.02% 2.5 ML NEB NEB SCH ×2 (16:55→19:00)
[2021-02-08 17:07] LABS: ABG HCO3 22 mmol/L (22-26); ABG PCO2 33 mmHg (35-45); ABG PH 7.43 (7.35-7.45); ABG PO2 53 mmHg (80-105); ABG TCO2 23
[2021-02-08] MEDS: FAMOTIDINE 20 MG TAB PO SCH (18:03)
[2021-02-08] MEDS: SEVELAMER CARBONATE 800 MG TAB PO SCH (18:03)
[2021-02-08] MEDS: AZITHROMYCIN 500MG/NS 250 ML 250 ML IV SCH (18:03)
[2021-02-08] MEDS: PIPERACILLIN/TAZOBACTAM 2.25 GM in SODIUM CHLORIDE 0.9% 50ML 50 ML IV SCH (18:04)
[2021-02-08] MEDS ORDERED: PIPERACILLIN/TAZOBACTAM SOD 2.25 GM VIAL ONE (18:11)
[2021-02-08] MEDS: FUROSEMIDE INJ 10 MG/ML 4 ML VIAL IV SCH (22:22)
[2021-02-09] VITALS (27 sets, daily range): BP systolic 99–135; BP diastolic 64–119
[2021-02-09 00:16] LABS: CREATINE KINASE MB 8.7 ng/mL (0-5.0)
[2021-02-09] MEDS: PIPERACILLIN/TAZOBACTAM 2.25 GM in SODIUM CHLORIDE 0.9% 50ML 50 ML IV SCH ×4 (00:35→17:37)
[2021-02-09] MEDS ORDERED: PIPERACILLIN/TAZOBACTAM SOD 2.25 GM VIAL ONE ×4 (00:44→16:55)
[2021-02-09] MEDS ORDERED: SODIUM CHLORIDE 0.9% 50ML 50 ML ONE ×2 (00:45→05:57)
[2021-02-09] MEDS: IPRATROPIUM BROMIDE 0.02% 2.5 ML NEB NEB SCH ×4 (01:00→19:10)
[2021-02-09 07:41] LABS: BASOPHILS # (AUTO) 0.1 (0.0-0.1); BASOPHILS % 0.6 % (0.0-1.0); EOSINOPHILS # (AUTO) 0.2 (0.0-0.4); EOSINOPHILS % 1.7 % (0.0-6.0); HEMATOCRIT 27.2 % (34.2-44.1); LYMPHOCYTES # (AUTO) 0.8 (1.0-3.2); LYMPHOCYTES % 5.7 % (18.0-39.1); MEAN CORPUSCULAR HEMOGLOBIN 32.6 pg (28-32); MEAN CORPUSCULAR HGB CONC 33.1 g/dL (31-35); MEAN CORPUSCULAR VOLUME 98.6 fL (81-99); MONOCYTES # (AUTO) 0.7 (0.2-0.8); MONOCYTES % 5.2 % (4.4-11.3); NEUTROPHILS # (AUTO) 11.6 (2.1-6.9); NEUTROPHILS % 86.1 % (38.7-80.0); PLATELET COUNT 178 x10e3/uL (140-360); RED BLOOD COUNT 2.76 x10e6/uL (3.6-5.1); RED CELL DISTRIBUTION WIDTH 12.8 % (11.7-14.4)
[2021-02-09 08:02] LABS: ALBUMIN 2.7 g/dL (3.5-5.0); ALBUMIN/GLOBULIN RATIO 0.7 (0.8-2.0); ANION GAP 24.9 mmol/L (8-16); CALCIUM 9.2 mg/dL (8.4-10.2); CREATININE, SERUM 15.52 mg/dL (0.57-1.11); PHOSPHORUS 6.6 MG/DL (2.3-4.7); POTASSIUM 3.9 mmol/L (3.5-5.1)
[2021-02-09 08:26] LABS: CHOL/HDL RATIO 2.4 (3.0-3.6)
[2021-02-09 08:27] LABS: CREATINE KINASE MB 9.3 ng/mL (0-5.0)
[2021-02-09] MEDS: FAMOTIDINE 20 MG TAB PO SCH ×2 (08:31→16:22)
[2021-02-09] MEDS: SEVELAMER CARBONATE 800 MG TAB PO SCH ×3 (08:31→16:47)
[2021-02-09] MEDS ORDERED: HYDROXYCHLOROQUINE SULFATE 200 MG TAB PO SCH (09:00)
[2021-02-09] MEDS: FUROSEMIDE INJ 10 MG/ML 4 ML VIAL IV SCH ×2 (09:14→20:53)
[2021-02-09] MEDS: LOSARTAN POTASSIUM 100 MG TAB PO SCH (09:15)
[2021-02-09] MEDS: CALCITRIOL 0.25 MCG CAP PO SCH (09:15)
[2021-02-09] MEDS: ATORVASTATIN 10 MG TAB PO SCH (09:15)
[2021-02-09 10:56] LABS: THYROID STIMULATING HORMONE 462.94 uIU/mL (0.350-4.940)
[2021-02-09] MEDS: AZITHROMYCIN 500MG/NS 250 ML 250 ML IV SCH (15:51)
[2021-02-10] VITALS (20 sets, daily range): BP systolic 88–125; BP diastolic 58–104
[2021-02-10] MEDS: IPRATROPIUM BROMIDE 0.02% 2.5 ML NEB NEB SCH ×4 (00:05→19:07)
[2021-02-10] MEDS: PIPERACILLIN/TAZOBACTAM 2.25 GM in SODIUM CHLORIDE 0.9% 50ML 50 ML IV SCH ×4 (00:15→18:03)
[2021-02-10] MEDS ORDERED: PIPERACILLIN/TAZOBACTAM SOD 2.25 GM VIAL ONE ×5 (00:19→16:46)
[2021-02-10] MEDS ORDERED: SODIUM CHLORIDE 0.9% 50ML 50 ML ONE ×3 (00:20→16:47)
[2021-02-10] MEDS: SEVELAMER CARBONATE 800 MG TAB PO SCH ×3 (07:46→16:50)
[2021-02-10] MEDS: FAMOTIDINE 20 MG TAB PO SCH ×2 (07:46→17:13)
[2021-02-10] MEDS: FUROSEMIDE INJ 10 MG/ML 4 ML VIAL IV SCH ×2 (08:31→21:00)
[2021-02-10] MEDS: LOSARTAN POTASSIUM 100 MG TAB PO SCH (08:32)
[2021-02-10] MEDS: ATORVASTATIN 10 MG TAB PO SCH (08:32)
[2021-02-10] MEDS: CALCITRIOL 0.25 MCG CAP PO SCH (08:32)
[2021-02-10 08:46] LABS: ALBUMIN 2.3 g/dL (3.5-5.0); ALBUMIN/GLOBULIN RATIO 0.5 (0.8-2.0); ANION GAP 24.9 mmol/L (8-16); CALCIUM 8.8 mg/dL (8.4-10.2); CREATININE, SERUM 15.68 mg/dL (0.57-1.11); POTASSIUM 3.9 mmol/L (3.5-5.1)
[2021-02-10 09:15] LABS: BASOPHILS # (AUTO) 0.1 (0.0-0.1); BASOPHILS % 0.6 % (0.0-1.0); EOSINOPHILS # (AUTO) 0.3 (0.0-0.4); EOSINOPHILS % 2.4 % (0.0-6.0); HEMATOCRIT 26.1 % (34.2-44.1); HEMOGLOBIN 8.6 g/dL (12.0-16.0); LYMPHOCYTES # (AUTO) 1.1 (1.0-3.2); LYMPHOCYTES % 7.9 % (18.0-39.1); MEAN CORPUSCULAR HEMOGLOBIN 32.6 pg (28-32); MEAN CORPUSCULAR VOLUME 98.9 fL (81-99); MONOCYTES # (AUTO) 0.8 (0.2-0.8); MONOCYTES % 5.5 % (4.4-11.3); NEUTROPHILS # (AUTO) 11.4 (2.1-6.9); NEUTROPHILS % 83.1 % (38.7-80.0); PLATELET COUNT 202 x10e3/uL (140-360); RED BLOOD COUNT 2.64 x10e6/uL (3.6-5.1); RED CELL DISTRIBUTION WIDTH 12.8 % (11.7-14.4)
[2021-02-10] MEDS: CARVEDILOL 3.125 MG TAB PO SCH (09:32)
[2021-02-10] MEDS ORDERED: SODIUM CHLORIDE 0.9% 250ML 250 ML ONE (16:47)
[2021-02-10] MEDS: AZITHROMYCIN 500MG/NS 250 ML 250 ML IV SCH (16:50)
[2021-02-11] VITALS (9 sets, daily range): BP systolic 93–107; BP diastolic 73–86
[2021-02-11] MEDS ORDERED: SODIUM CHLORIDE 0.9% 50ML 50 ML ONE ×5 (00:46→23:50)
[2021-02-11] MEDS ORDERED: PIPERACILLIN/TAZOBACTAM SOD 2.25 GM VIAL ONE ×5 (00:46→23:49)
[2021-02-11] MEDS: PIPERACILLIN/TAZOBACTAM 2.25 GM in SODIUM CHLORIDE 0.9% 50ML 50 ML IV SCH ×4 (00:46→18:18)
[2021-02-11] MEDS: IPRATROPIUM BROMIDE 0.02% 2.5 ML NEB NEB SCH ×4 (01:15→20:22)
[2021-02-11 05:14] LABS: BASOPHILS # (AUTO) 0.1 (0.0-0.1); BASOPHILS % 0.6 % (0.0-1.0); EOSINOPHILS # (AUTO) 0.4 (0.0-0.4); EOSINOPHILS % 3.4 % (0.0-6.0); HEMATOCRIT 27.6 % (34.2-44.1); HEMOGLOBIN 9.2 g/dL (12.0-16.0); LYMPHOCYTES % 7.9 % (18.0-39.1); MEAN CORPUSCULAR HEMOGLOBIN 32.6 pg (28-32); MEAN CORPUSCULAR HGB CONC 33.3 g/dL (31-35); MEAN CORPUSCULAR VOLUME 97.9 fL (81-99); MONOCYTES # (AUTO) 0.7 (0.2-0.8); MONOCYTES % 5.2 % (4.4-11.3); NEUTROPHILS # (AUTO) 10.7 (2.1-6.9); NEUTROPHILS % 82.4 % (38.7-80.0); PLATELET COUNT 208 x10e3/uL (140-360); RED BLOOD COUNT 2.82 x10e6/uL (3.6-5.1); RED CELL DISTRIBUTION WIDTH 12.7 % (11.7-14.4)
[2021-02-11 05:36] LABS: ALBUMIN 2.2 g/dL (3.5-5.0); ALBUMIN/GLOBULIN RATIO 0.5 (0.8-2.0); ANION GAP 25.7 mmol/L (8-16); CALCIUM 9.4 mg/dL (8.4-10.2); CREATININE, SERUM 14.61 mg/dL (0.57-1.11); POTASSIUM 3.7 mmol/L (3.5-5.1)
[2021-02-11] MEDS: SEVELAMER CARBONATE 800 MG TAB PO SCH ×3 (08:18→16:45)
[2021-02-11] MEDS: FAMOTIDINE 20 MG TAB PO SCH ×2 (08:18→16:45)
[2021-02-11] MEDS: FUROSEMIDE INJ 10 MG/ML 4 ML VIAL IV SCH (08:18)
[2021-02-11] MEDS: ATORVASTATIN 10 MG TAB PO SCH (08:22)
[2021-02-11] MEDS: CALCITRIOL 0.25 MCG CAP PO SCH (08:22)
[2021-02-11] MEDS: CARVEDILOL 3.125 MG TAB PO SCH (08:23)
[2021-02-11] MEDS: LOSARTAN POTASSIUM 100 MG TAB PO SCH (08:23)
[2021-02-11 09:53] LABS: FREE T4 (FREE THYROXINE) < 0.40 ng/dL (0.8-1.8)
[2021-02-11] MEDS: ASPIRIN 81 MG ENTERIC COATED PO SCH (11:34)
[2021-02-11] MEDS: AZITHROMYCIN 500MG/NS 250 ML 250 ML IV SCH (16:46)
[2021-02-12] VITALS: BP_SYST 108; BP_SYST 109; BP_DIAS 72; BP_DIAS 73
[2021-02-12] MEDS: IPRATROPIUM BROMIDE 0.02% 2.5 ML NEB NEB SCH ×3 (03:45→13:28)
[2021-02-12 04:00] VITALS: BP 100/78
[2021-02-12] MEDS ORDERED: PIPERACILLIN/TAZOBACTAM SOD 2.25 GM VIAL ONE ×2 (04:44→12:00)
[2021-02-12] MEDS ORDERED: SODIUM CHLORIDE 0.9% 50ML 50 ML ONE ×2 (04:45→12:00)
[2021-02-12 05:38] LABS: BASOPHILS # (AUTO) 0.1 (0.0-0.1); BASOPHILS % 0.7 % (0.0-1.0); EOSINOPHILS # (AUTO) 0.8 (0.0-0.4); EOSINOPHILS % 7.5 % (0.0-6.0); HEMATOCRIT 29.6 % (34.2-44.1); HEMOGLOBIN 9.8 g/dL (12.0-16.0); LYMPHOCYTES # (AUTO) 1.2 (1.0-3.2); LYMPHOCYTES % 11.6 % (18.0-39.1); MEAN CORPUSCULAR HEMOGLOBIN 32.1 pg (28-32); MEAN CORPUSCULAR HGB CONC 33.1 g/dL (31-35); MONOCYTES # (AUTO) 0.5 (0.2-0.8); MONOCYTES % 4.5 % (4.4-11.3); NEUTROPHILS # (AUTO) 7.6 (2.1-6.9); NEUTROPHILS % 75.1 % (38.7-80.0); PLATELET COUNT 236 x10e3/uL (140-360); RED BLOOD COUNT 3.05 x10e6/uL (3.6-5.1); RED CELL DISTRIBUTION WIDTH 12.6 % (11.7-14.4)
[2021-02-12] MEDS ORDERED: LEVOTHYROXINE SODIUM 50 MCG TAB PO SCH (06:00)
[2021-02-12 06:02] LABS: ALBUMIN 2.1 g/dL (3.5-5.0); ALBUMIN/GLOBULIN RATIO 0.4 (0.8-2.0); ANION GAP 25.8 mmol/L (8-16); CALCIUM 9.3 mg/dL (8.4-10.2); CREATININE, SERUM 14.52 mg/dL (0.57-1.11); POTASSIUM 3.8 mmol/L (3.5-5.1)
[2021-02-12] MEDS: PIPERACILLIN/TAZOBACTAM 2.25 GM in SODIUM CHLORIDE 0.9% 50ML 50 ML IV SCH ×4 (06:14→12:24)
[2021-02-12 07:49] VITALS: BP 96/85
[2021-02-12 07:56] VITALS: BP 96/85
[2021-02-12] MEDS: SEVELAMER CARBONATE 800 MG TAB PO SCH ×2 (08:00→12:22)
[2021-02-12] MEDS ORDERED: SYNTHROID50 MCG PO (08:55)
[2021-02-12] MEDS ORDERED: ASPIRIN EC81 MG PO (08:55)
[2021-02-12] MEDS ORDERED: COREG3.125 MG PO (08:55)
[2021-02-12] MEDS ORDERED: CEFDINIR300 MG PO (08:56)
[2021-02-12] MEDS: CARVEDILOL 3.125 MG TAB PO SCH (09:00)
[2021-02-12] MEDS: LOSARTAN POTASSIUM 100 MG TAB PO SCH (09:58)
[2021-02-12] MEDS: FAMOTIDINE 20 MG TAB PO SCH (10:58)
[2021-02-12] MEDS: ATORVASTATIN 10 MG TAB PO SCH (10:59)
[2021-02-12] MEDS: ASPIRIN 81 MG ENTERIC COATED PO SCH (10:59)
[2021-02-12] MEDS: CALCITRIOL 0.25 MCG CAP PO SCH (11:00)
[2021-02-12 12:00] VITALS: BP 88/63
[2021-02-12] MEDS ORDERED: SYNTHROID88 MCG PO (14:28)
[2021-02-12 15:59] VITALS: BP 94/67
[2021-02-13] MEDS ORDERED: LOSARTAN POTASSIUM 25 MG TAB PO SCH (09:00)
== END 2021-02-12 16:30 | disposition home or self-care (01) | DRG 871 ==
LOC: ER 07:46 → ERHOLD 10:16 → MED/SURG2 11:39 → ICU 17:09 → MED/SURG2 02-10 15:00
PROVIDERS: ADMIT Internal Medicine; ATTEND Internal Medicine
DX: A41.9 Sepsis, unspecified organism (principal); J96.00 Acute respiratory failure, unspecified whether with hypoxia or hypercapnia; N18.6 End stage renal disease; J15.9 Unspecified bacterial pneumonia; I21.4 Non-ST elevation (NSTEMI) myocardial infarction; I50.43 Acute on chronic combined systolic (congestive) and diastolic (congestive) heart failure; I13.2 Hypertensive heart and chronic kidney disease with heart failure and with stage 5 chronic kidney disease, or end stage renal disease; N25.81 Secondary hyperparathyroidism of renal origin; I48.91 Unspecified atrial fibrillation; M32.9 Systemic lupus erythematosus, unspecified; Z79.01 Long term (current) use of anticoagulants; Z95.2 Presence of prosthetic heart valve; Z20.822 Contact with and (suspected) exposure to COVID-19; D63.1 Anemia in chronic kidney disease
CPT/HCPCS: 36415; 36600; 71045; 71250; 80053; 80061; 81001; 82550; 82553; 82805; 82948; 83036; 83605; 83880; 83970; 84100; 84436; 84439; 84443; 84479; 84484; 85025; 86376; 86850; 86900; 87040; 87400; 93005; 93306; 94640; 94660; 97139; 99284; J0360; J0456; J1940; J2543; J7050; U0002

== ENCOUNTER 2021-09-08 17:30 | Emergency (ER) | payer OTHER ==
[~2021-09-08] VITALS: Ht 167.6 cm; Wt 85.3 kg
[~2021-09-08 17:30] MED LIST changes: +ASPIRIN EC81 MG PO; +CALCITRIOL0.5 MCG PO; +CEFDINIR300 MG PO; +COREG3.125 MG PO; +DOXYCYCLINE HY100 MG PO; +SEVELAMER CARB800 MG PO; +SYNTHROID50 MCG PO; +SYNTHROID88 MCG PO
[2021-09-08] MEDS ORDERED: Morphine 2mg Syringe 2 MG/ML SYR IV STA (18:38)
[2021-09-08] MEDS ORDERED: ONDANSETRON HCL INJ 2MG/ML 2ML 2 MG/ML VIAL IV STA (18:39)
[2021-09-08] MEDS ORDERED: DIATRIZOATE MEGL/DIATRIZOA SOD 30 ML BTL PO ONE (18:47)
[2021-09-08] MEDS ORDERED: Morphine 4mg Syringe 4 MG/ML INJ ONE (18:52)
[2021-09-08 19:04] LABS: BASOPHILS % 0.2 % (0.0-1.0); EOSINOPHILS # (AUTO) 0.5 (0.0-0.4); EOSINOPHILS % 3.4 % (0.0-6.0); HEMATOCRIT 29.1 % (34.2-44.1); HEMOGLOBIN 9.7 g/dL (12.0-16.0); LYMPHOCYTES # (AUTO) 1.5 (1.0-3.2); LYMPHOCYTES % 11.5 % (18.0-39.1); MEAN CORPUSCULAR HEMOGLOBIN 31.1 pg (28-32); MEAN CORPUSCULAR HGB CONC 33.3 g/dL (31-35); MEAN CORPUSCULAR VOLUME 93.3 fL (81-99); MONOCYTES # (AUTO) 1.1 (0.2-0.8); MONOCYTES % 8.2 % (4.4-11.3); NEUTROPHILS # (AUTO) 10.1 (2.1-6.9); PLATELET COUNT 295 x10e3/uL (140-360); RED BLOOD COUNT 3.12 x10e6/uL (3.6-5.1); RED CELL DISTRIBUTION WIDTH 14.6 % (11.7-14.4)
[2021-09-08 19:15] LABS: CLARITY,URINE CLEAR (CLEAR); COLOR,URINE YELLOW (YELLOW); KETONES,URINE NEGATIVE (NEGATIVE); LEUKOCYTE ESTERASE ,URINE NEGATIVE (NEGATIVE); NITRITE,URINE NEGATIVE (NEGATIVE); PROTEIN,URINE DIPSTICK 2+ (NEGATIVE); URINE UROBILINOGEN 0.2 mg/dL (0.2 - 1)
[2021-09-08 19:25] LABS: ALBUMIN 3.2 g/dL (3.5-5.0); ALBUMIN/GLOBULIN RATIO 0.8 (0.8-2.0); ANION GAP 20.6 mmol/L (8-16); CALCIUM 9.6 mg/dL (8.4-10.2); CREATININE, SERUM 10.92 mg/dL (0.57-1.11); POTASSIUM 4.6 mmol/L (3.5-5.1)
[2021-09-08 20:15] LABS: CREATINE KINASE MB 0.7 ng/mL (0-5.0)
[2021-09-08 21:22] VITALS: BP 117/84
== END 2021-09-08 21:51 | disposition home or self-care (01) ==
LOC: ER 18:27
DX: R33.9 Retention of urine, unspecified (principal); K56.41 Fecal impaction; R10.30 Lower abdominal pain, unspecified; I12.0 Hypertensive chronic kidney disease with stage 5 chronic kidney disease or end stage renal disease; E11.22 Type 2 diabetes mellitus with diabetic chronic kidney disease; N18.6 End stage renal disease; Z99.2 Dependence on renal dialysis; M32.9 Systemic lupus erythematosus, unspecified; I35.0 Nonrheumatic aortic (valve) stenosis; E21.3 Hyperparathyroidism, unspecified
CPT/HCPCS: 36415; 74176; 80053; 81001; 81025; 82550; 82553; 83690; 83880; 84484; 85025; 93005; 99284; J2270; J2405

== ENCOUNTER 2023-07-20 12:23 | Inpatient (IN) | payer MEDICARE, OTHER ==
[~2023-07-20] VITALS: Ht 167.6 cm; Wt 85.3 kg
[2023-07-20] VITALS (20 sets, daily range): BP systolic 88–138; BP diastolic 45–87; PULSE 69–92; RESP 11–27; TEMP 97; O2SAT 94–100
[2023-07-20 12:46] LABS: BASOPHILS % 0.4 % (0.0-1.0); EOSINOPHILS # (AUTO) 0.2 (0.0-0.4); EOSINOPHILS % 1.6 % (0.0-6.0); HEMATOCRIT 24.5 % (34.2-44.1); LYMPHOCYTES % 20.1 % (18.0-39.1); MEAN CORPUSCULAR HEMOGLOBIN 33.7 pg (28-32); MEAN CORPUSCULAR HGB CONC 36.7 g/dL (31-35); MEAN CORPUSCULAR VOLUME 91.8 fL (81-99); MONOCYTES # (AUTO) 0.7 (0.2-0.8); MONOCYTES % 6.9 % (4.4-11.3); NEUTROPHILS # (AUTO) 6.9 (2.1-6.9); NEUTROPHILS % 70.5 % (38.7-80.0); PLATELET COUNT 289 x10e3/uL (140-360); RED BLOOD COUNT 2.67 x10e6/uL (3.6-5.1); RED CELL DISTRIBUTION WIDTH 13.9 % (11.7-14.4); WHITE BLOOD COUNT 9.77 x10e3/uL (4.8-10.8)
[2023-07-20] MEDS ORDERED: FENTANYL CITRATE/PF 100MCG/2 ML INJ IV ONE (13:00)
[2023-07-20 13:04] LABS: INR 4.45; PARTIAL THROMBOPLASTIN TIME 101.3 seconds (23.8-35.5); PROTHROMBIN TIME 45.1 seconds (11.9-14.5)
[2023-07-20 13:08] LABS: ALBUMIN 3.4 g/dL (3.5-5.0); ALBUMIN/GLOBULIN RATIO 0.9 (0.8-2.0); ANION GAP 23.3 mmol/L (8-16); CALCIUM 8.4 mg/dL (8.4-10.2); CREATININE, SERUM 12.69 mg/dL (0.57-1.11); POTASSIUM 3.3 mmol/L (3.5-5.1)
[2023-07-20] MEDS ORDERED: HUM PROTHROMBIN CPLX(PCC)4FACT 2,000 UNIT IV ONE ×2 (14:43→15:30)
[2023-07-20] MEDS ORDERED: LACTATED RINGER'S 1,000 ML INJ SCH (14:45)
[2023-07-20] MEDS ORDERED: LACTATED RINGER'S 1,000 ML ONE (14:49)
[2023-07-20] MEDS ORDERED: SODIUM CHLORIDE 0.9% 100 ML ONE (14:59)
[2023-07-20] MEDS ORDERED: PHYTONADIONE 10 MG/ML AMP IV ONE (15:15)
[2023-07-20] MEDS ORDERED: PHYTONADIONE 10MG/ML 1 ML ONE (15:16)
[2023-07-20] MEDS ORDERED: DEXTROSE 5% 50ML 50 ML IV ONE (15:31)
[2023-07-20] MEDS ORDERED: IOPAMIDOL 370 MG/ML 100 ML INFUS..BTL INJ ONE (16:15)
[2023-07-20] MEDS ORDERED: LIDOCAINE HCL 2% LOCAL 20 ML VIAL ONE (16:15)
[2023-07-20] MEDS ORDERED: SODIUM CHLORIDE 0.9% 500ML 500 ML ONE ×2 (16:15→16:49)
[2023-07-20] MEDS ORDERED: SODIUM CHLORIDE 0.9% 1000ML 1,000 ML ONE (16:21)
[2023-07-20 18:48] LABS: INR 1.25; PROTHROMBIN TIME 16.5 seconds (11.9-14.5)
[2023-07-20] MEDS: ONDANSETRON HCL INJ 2MG/ML 2ML 2 MG/ML VIAL IV PRN (20:03)
[2023-07-20] MEDS: Morphine 2mg Syringe 2 MG/ML SYR IV PRN (20:49)
[2023-07-21] VITALS (49 sets, daily range): BP systolic 111–171; BP diastolic 72–109; PULSE 81–102; RESP 16–28; TEMP 97.2–100; O2SAT 95–100
[2023-07-21 00:31] LABS: INR 1.11
[2023-07-21] MEDS: ONDANSETRON HCL INJ 2MG/ML 2ML 2 MG/ML VIAL IV PRN ×2 (01:03→05:35)
[2023-07-21] MEDS: Morphine 2mg Syringe 2 MG/ML SYR IV PRN ×4 (01:03→20:17)
[2023-07-21] MEDS: LEVOTHYROXINE SODIUM 50 MCG TAB PO SCH ×2 (05:25→05:37)
[2023-07-21 06:58] LABS: BASOPHILS % 0.3 % (0.0-1.0); MEAN CORPUSCULAR HEMOGLOBIN 33.8 pg (28-32); MEAN CORPUSCULAR HGB CONC 34.9 g/dL (31-35); MONOCYTES # (AUTO) 0.8 (0.2-0.8); MONOCYTES % 6.9 % (4.4-11.3); NEUTROPHILS # (AUTO) 10.1 (2.1-6.9); NEUTROPHILS % 84.1 % (38.7-80.0); PLATELET COUNT 187 x10e3/uL (140-360); RED BLOOD COUNT 1.33 x10e6/uL (3.6-5.1); RED CELL DISTRIBUTION WIDTH 14.5 % (11.7-14.4); WHITE BLOOD COUNT 11.94 x10e3/uL (4.8-10.8)
[2023-07-21 06:59] LABS: HEMOGLOBIN 4.5 g/dL (12.0-16.0)
[2023-07-21 07:00] LABS: HEMATOCRIT 12.9 % (34.2-44.1)
[2023-07-21 07:13] LABS: ANION GAP 21.4 mmol/L (8-16); CALCIUM 7.6 mg/dL (8.4-10.2); CREATININE, SERUM 12.62 mg/dL (0.57-1.11)
[2023-07-21 07:15] LABS: POTASSIUM 4.4 mmol/L (3.5-5.1)
[2023-07-21] MEDS ORDERED: SODIUM CHLORIDE 0.9% 250ML 250 ML ONE (07:15)
[2023-07-21] MEDS ORDERED: PROMETHAZINE 12.5MG/ NACL 0.9% 12.5 MG/50 ML BAG IV ONE (08:30)
[2023-07-21] MEDS: CALCITRIOL 0.25 MCG CAP PO SCH (08:50)
[2023-07-21] MEDS: HYDROXYCHLOROQUINE SULFATE 200 MG TAB PO SCH (08:51)
[2023-07-21] MEDS: ATORVASTATIN 10 MG TAB PO SCH (08:51)
[2023-07-21 14:51] LABS: BASOPHILS # (AUTO) 0.1 (0.0-0.1); BASOPHILS % 0.4 % (0.0-1.0); EOSINOPHILS % 0.1 % (0.0-6.0); HEMATOCRIT 24.2 % (34.2-44.1); HEMOGLOBIN 8.7 g/dL (12.0-16.0); LYMPHOCYTES # (AUTO) 1.3 (1.0-3.2); LYMPHOCYTES % 8.6 % (18.0-39.1); MEAN CORPUSCULAR HEMOGLOBIN 31.9 pg (28-32); MEAN CORPUSCULAR VOLUME 88.6 fL (81-99); MONOCYTES # (AUTO) 1.3 (0.2-0.8); MONOCYTES % 8.7 % (4.4-11.3); NEUTROPHILS # (AUTO) 12.2 (2.1-6.9); NEUTROPHILS % 80.9 % (38.7-80.0); PLATELET COUNT 171 x10e3/uL (140-360); RED BLOOD COUNT 2.73 x10e6/uL (3.6-5.1); RED CELL DISTRIBUTION WIDTH 15.6 % (11.7-14.4); WHITE BLOOD COUNT 15.03 x10e3/uL (4.8-10.8)
[2023-07-21] MEDS ORDERED: AMLODIPINE BESYLATE 10 MG TAB PO ONE (17:00)
[2023-07-21] MEDS: ACETAMINOPHEN 325 MG TAB PO PRN (20:16)
[2023-07-22] VITALS (27 sets, daily range): BP systolic 109–151; BP diastolic 74–97; PULSE 63–115; RESP 12–32; TEMP 98.8–100; O2SAT 92–98
[2023-07-22 05:51] LABS: BASOPHILS # (AUTO) 0.1 (0.0-0.1); BASOPHILS % 0.3 % (0.0-1.0); EOSINOPHILS # (AUTO) 0.1 (0.0-0.4); EOSINOPHILS % 0.5 % (0.0-6.0); HEMOGLOBIN 7.9 g/dL (12.0-16.0); LYMPHOCYTES # (AUTO) 1.3 (1.0-3.2); LYMPHOCYTES % 5.9 % (18.0-39.1); MEAN CORPUSCULAR HEMOGLOBIN 31.9 pg (28-32); MEAN CORPUSCULAR HGB CONC 35.6 g/dL (31-35); MEAN CORPUSCULAR VOLUME 89.5 fL (81-99); MONOCYTES # (AUTO) 1.7 (0.2-0.8); MONOCYTES % 7.7 % (4.4-11.3); NEUTROPHILS # (AUTO) 18.5 (2.1-6.9); NEUTROPHILS % 84.4 % (38.7-80.0); PLATELET COUNT 168 x10e3/uL (140-360); RED BLOOD COUNT 2.48 x10e6/uL (3.6-5.1); RED CELL DISTRIBUTION WIDTH 16.5 % (11.7-14.4); WHITE BLOOD COUNT 21.86 x10e3/uL (4.8-10.8)
[2023-07-22] MEDS: LEVOTHYROXINE SODIUM 50 MCG TAB PO SCH (05:54)
[2023-07-22 06:06] LABS: HEMATOCRIT 22.2 % (34.2-44.1)
[2023-07-22 06:21] LABS: ALBUMIN 2.6 g/dL (3.5-5.0); ALBUMIN/GLOBULIN RATIO 0.9 (0.8-2.0); ANION GAP 20.1 mmol/L (8-16); CALCIUM 7.8 mg/dL (8.4-10.2); CREATININE, SERUM 13.8 mg/dL (0.57-1.11); POTASSIUM 4.1 mmol/L (3.5-5.1)
[2023-07-22] MEDS: Morphine 2mg Syringe 2 MG/ML SYR IV PRN ×2 (07:39→19:39)
[2023-07-22] MEDS: ATORVASTATIN 10 MG TAB PO SCH (08:05)
[2023-07-22] MEDS: CALCITRIOL 0.25 MCG CAP PO SCH (08:05)
[2023-07-22] MEDS: HYDROXYCHLOROQUINE SULFATE 200 MG TAB PO SCH (08:05)
[2023-07-22] MEDS: GENTAMICIN SULFATE 15 GM CR TP SCH (08:06)
[2023-07-22] MEDS: AMLODIPINE BESYLATE 10 MG TAB PO SCH (08:06)
[2023-07-23] VITALS (38 sets, daily range): BP systolic 100–137; BP diastolic 71–90; PULSE 101–115; RESP 16–29; TEMP 98.2–99.4; O2SAT 93–98
[2023-07-23] MEDS: LEVOTHYROXINE SODIUM 50 MCG TAB PO SCH (05:10)
[2023-07-23 07:43] LABS: BASOPHILS # (AUTO) 0.1 (0.0-0.1); BASOPHILS % 0.3 % (0.0-1.0); EOSINOPHILS # (AUTO) 0.1 (0.0-0.4); EOSINOPHILS % 0.7 % (0.0-6.0); LYMPHOCYTES # (AUTO) 1.2 (1.0-3.2); LYMPHOCYTES % 6.3 % (18.0-39.1); MEAN CORPUSCULAR HEMOGLOBIN 32.1 pg (28-32); MEAN CORPUSCULAR HGB CONC 35.6 g/dL (31-35); MEAN CORPUSCULAR VOLUME 90.2 fL (81-99); MONOCYTES # (AUTO) 1.3 (0.2-0.8); NEUTROPHILS # (AUTO) 16.3 (2.1-6.9); NEUTROPHILS % 84.6 % (38.7-80.0); PLATELET COUNT 163 x10e3/uL (140-360); RED BLOOD COUNT 2.24 x10e6/uL (3.6-5.1); RED CELL DISTRIBUTION WIDTH 16.5 % (11.7-14.4); WHITE BLOOD COUNT 19.22 x10e3/uL (4.8-10.8)
[2023-07-23 07:45] LABS: HEMATOCRIT 20.2 % (34.2-44.1); HEMOGLOBIN 7.2 g/dL (12.0-16.0)
[2023-07-23] MEDS: CALCITRIOL 0.25 MCG CAP PO SCH (08:11)
[2023-07-23] MEDS: ATORVASTATIN 10 MG TAB PO SCH (08:11)
[2023-07-23] MEDS: HYDROXYCHLOROQUINE SULFATE 200 MG TAB PO SCH (08:11)
[2023-07-23] MEDS: GENTAMICIN SULFATE 15 GM CR TP SCH (08:12)
[2023-07-23] MEDS: AMLODIPINE BESYLATE 10 MG TAB PO SCH (08:12)
[2023-07-23] MEDS ORDERED: SODIUM CHLORIDE 0.9% 250ML 250 ML IV ONE (09:30)
[2023-07-23 17:01] LABS: BASOPHILS % 0.2 % (0.0-1.0); EOSINOPHILS # (AUTO) 0.2 (0.0-0.4); HEMOGLOBIN 8.2 g/dL (12.0-16.0); LYMPHOCYTES # (AUTO) 1.2 (1.0-3.2); LYMPHOCYTES % 5.8 % (18.0-39.1); MEAN CORPUSCULAR HGB CONC 36.3 g/dL (31-35); MEAN CORPUSCULAR VOLUME 88.3 fL (81-99); MONOCYTES # (AUTO) 1.3 (0.2-0.8); MONOCYTES % 6.5 % (4.4-11.3); NEUTROPHILS # (AUTO) 17.1 (2.1-6.9); NEUTROPHILS % 85.9 % (38.7-80.0); PLATELET COUNT 167 x10e3/uL (140-360); RED BLOOD COUNT 2.56 x10e6/uL (3.6-5.1); RED CELL DISTRIBUTION WIDTH 15.9 % (11.7-14.4); WHITE BLOOD COUNT 19.84 x10e3/uL (4.8-10.8)
[2023-07-23 17:05] LABS: HEMATOCRIT 22.6 % (34.2-44.1)
[2023-07-23] MEDS: ACETAMINOPHEN 325 MG TAB PO PRN (21:09)
[2023-07-24] VITALS (28 sets, daily range): BP systolic 111–148; BP diastolic 79–95; PULSE 97–109; RESP 16–33; TEMP 98.2–98.9; O2SAT 94–99
[2023-07-24] MEDS: LEVOTHYROXINE SODIUM 50 MCG TAB PO SCH (05:50)
[2023-07-24 06:41] LABS: BASOPHILS % 0.2 % (0.0-1.0); EOSINOPHILS # (AUTO) 0.3 (0.0-0.4); EOSINOPHILS % 1.6 % (0.0-6.0); HEMATOCRIT 23.5 % (34.2-44.1); HEMOGLOBIN 8.6 g/dL (12.0-16.0); LYMPHOCYTES # (AUTO) 0.9 (1.0-3.2); LYMPHOCYTES % 5.2 % (18.0-39.1); MEAN CORPUSCULAR HEMOGLOBIN 32.3 pg (28-32); MEAN CORPUSCULAR HGB CONC 36.6 g/dL (31-35); MEAN CORPUSCULAR VOLUME 88.3 fL (81-99); MONOCYTES # (AUTO) 1.1 (0.2-0.8); MONOCYTES % 6.4 % (4.4-11.3); NEUTROPHILS # (AUTO) 14.8 (2.1-6.9); PLATELET COUNT 173 x10e3/uL (140-360); RED BLOOD COUNT 2.66 x10e6/uL (3.6-5.1); RED CELL DISTRIBUTION WIDTH 15.9 % (11.7-14.4); WHITE BLOOD COUNT 17.18 x10e3/uL (4.8-10.8)
[2023-07-24 07:17] LABS: ANION GAP 21.3 mmol/L (8-16); CALCIUM 8.6 mg/dL (8.4-10.2); CREATININE, SERUM 15.19 mg/dL (0.57-1.11); POTASSIUM 4.3 mmol/L (3.5-5.1)
[2023-07-24] MEDS: HYDROXYCHLOROQUINE SULFATE 200 MG TAB PO SCH (08:24)
[2023-07-24] MEDS: AMLODIPINE BESYLATE 10 MG TAB PO SCH (08:24)
[2023-07-24] MEDS: GENTAMICIN SULFATE 15 GM CR TP SCH (08:24)
[2023-07-24] MEDS: EPOETIN ALFA-EPBX 10,000 UNIT/ML VIAL SC SCH (08:24)
[2023-07-24] MEDS: CALCITRIOL 0.25 MCG CAP PO SCH (08:24)
[2023-07-24] MEDS: ATORVASTATIN 10 MG TAB PO SCH (08:24)
[2023-07-24] MEDS: Morphine 2mg Syringe 2 MG/ML SYR IV PRN (23:29)
[2023-07-25] VITALS (15 sets, daily range): BP systolic 124–148; BP diastolic 81–110; PULSE 89–104; RESP 14–27; TEMP 98–99.7; O2SAT 92–99
[2023-07-25] MEDS: LEVOTHYROXINE SODIUM 50 MCG TAB PO SCH (05:07)
[2023-07-25 06:29] LABS: BASOPHILS % 0.1 % (0.0-1.0); EOSINOPHILS # (AUTO) 0.4 (0.0-0.4); EOSINOPHILS % 3.3 % (0.0-6.0); HEMATOCRIT 22.1 % (34.2-44.1); HEMOGLOBIN 8.1 g/dL (12.0-16.0); LYMPHOCYTES # (AUTO) 0.8 (1.0-3.2); LYMPHOCYTES % 5.8 % (18.0-39.1); MEAN CORPUSCULAR HEMOGLOBIN 32.3 pg (28-32); MEAN CORPUSCULAR HGB CONC 36.7 g/dL (31-35); MONOCYTES # (AUTO) 1.1 (0.2-0.8); MONOCYTES % 7.8 % (4.4-11.3); NEUTROPHILS # (AUTO) 11.1 (2.1-6.9); NEUTROPHILS % 82.3 % (38.7-80.0); PLATELET COUNT 183 x10e3/uL (140-360); RED BLOOD COUNT 2.51 x10e6/uL (3.6-5.1); RED CELL DISTRIBUTION WIDTH 15.7 % (11.7-14.4); WHITE BLOOD COUNT 13.52 x10e3/uL (4.8-10.8)
[2023-07-25] MEDS: CALCITRIOL 0.25 MCG CAP PO SCH (09:57)
[2023-07-25] MEDS: AMLODIPINE BESYLATE 10 MG TAB PO SCH (09:57)
[2023-07-25] MEDS: HYDROXYCHLOROQUINE SULFATE 200 MG TAB PO SCH (09:57)
[2023-07-25] MEDS: GENTAMICIN SULFATE 15 GM CR TP SCH (09:58)
[2023-07-25] MEDS: ATORVASTATIN 10 MG TAB PO SCH (09:58)
[2023-07-25 11:38] LABS: BASOPHILS % 0.2 % (0.0-1.0); EOSINOPHILS # (AUTO) 0.4 (0.0-0.4); EOSINOPHILS % 3.4 % (0.0-6.0); HEMOGLOBIN 8.2 g/dL (12.0-16.0); LYMPHOCYTES # (AUTO) 0.7 (1.0-3.2); LYMPHOCYTES % 5.3 % (18.0-39.1); MEAN CORPUSCULAR HGB CONC 36.8 g/dL (31-35); MEAN CORPUSCULAR VOLUME 87.1 fL (81-99); MONOCYTES # (AUTO) 1.1 (0.2-0.8); MONOCYTES % 8.3 % (4.4-11.3); NEUTROPHILS # (AUTO) 10.7 (2.1-6.9); NEUTROPHILS % 82.2 % (38.7-80.0); PLATELET COUNT 188 x10e3/uL (140-360); RED BLOOD COUNT 2.56 x10e6/uL (3.6-5.1); RED CELL DISTRIBUTION WIDTH 15.3 % (11.7-14.4); WHITE BLOOD COUNT 13.06 x10e3/uL (4.8-10.8)
[2023-07-25 11:44] LABS: HEMATOCRIT 22.3 % (34.2-44.1)
[2023-07-25] MEDS ORDERED: NORVASC10 MG PO (13:29)
[2023-07-25] MEDS ORDERED: ACETAMINOPHEN325 M1 PO (13:29)
[2023-07-25] MEDS ORDERED: RETACRIT10000 UNIT SC (13:29)
[2023-07-25] MEDS ORDERED: GENTAMICIN SULF15 GM TP (13:29)
[2023-07-25] MEDS ORDERED: COREG6.25 MG PO (16:14)
[2023-07-25] MEDS ORDERED: vitamin d PO (16:14)
[2023-07-25] MEDS ORDERED: NIFEDIPINE ER30 M1 PO (16:14)
[2023-07-25] MEDS ORDERED: LEVOTHYROXINE112 MCG PO (16:20)
[2023-07-25] MEDS ORDERED: WARFARIN SODIUM5 MG PO (16:23)
[2023-07-25] MEDS ORDERED: LEVOTHYROXINE SODIUM 112 MCG TAB PO SCH (16:30)
[2023-07-26] VITALS (8 sets, daily range): BP systolic 120–138; BP diastolic 87–92; PULSE 95–125; RESP 17–25; TEMP 97.6–99.8; O2SAT 94–100
[2023-07-26] MEDS: LEVOTHYROXINE SODIUM 50 MCG TAB PO SCH (05:12)
[2023-07-26 06:14] LABS: BASOPHILS % 0.2 % (0.0-1.0); EOSINOPHILS # (AUTO) 0.4 (0.0-0.4); EOSINOPHILS % 4.1 % (0.0-6.0); HEMATOCRIT 22.9 % (34.2-44.1); HEMOGLOBIN 8.3 g/dL (12.0-16.0); LYMPHOCYTES # (AUTO) 0.8 (1.0-3.2); LYMPHOCYTES % 8.4 % (18.0-39.1); MEAN CORPUSCULAR HEMOGLOBIN 31.4 pg (28-32); MEAN CORPUSCULAR HGB CONC 36.2 g/dL (31-35); MEAN CORPUSCULAR VOLUME 86.7 fL (81-99); MONOCYTES # (AUTO) 1.2 (0.2-0.8); MONOCYTES % 12.2 % (4.4-11.3); NEUTROPHILS # (AUTO) 7.3 (2.1-6.9); NEUTROPHILS % 74.4 % (38.7-80.0); PLATELET COUNT 197 x10e3/uL (140-360); RED BLOOD COUNT 2.64 x10e6/uL (3.6-5.1); RED CELL DISTRIBUTION WIDTH 15.3 % (11.7-14.4); WHITE BLOOD COUNT 9.83 x10e3/uL (4.8-10.8)
[2023-07-26] MEDS: GENTAMICIN SULFATE 15 GM CR TP SCH (09:00)
[2023-07-26] MEDS: CALCITRIOL 0.25 MCG CAP PO SCH (09:28)
[2023-07-26] MEDS: HYDROXYCHLOROQUINE SULFATE 200 MG TAB PO SCH (09:28)
[2023-07-26] MEDS: ATORVASTATIN 10 MG TAB PO SCH (09:28)
[2023-07-26] MEDS: AMLODIPINE BESYLATE 10 MG TAB PO SCH (09:28)
[2023-07-26] MEDS: EPOETIN ALFA-EPBX 10,000 UNIT/ML VIAL SC SCH (09:42)
[2023-07-26] MEDS ORDERED: PLAQUENIL200 MG PO (14:39)
[2023-07-26] MEDS ORDERED: ROCALTROL0.25 MCG PO (14:39)
[2023-07-26] MEDS ORDERED: LIPITOR10 MG PO (14:39)
[2023-07-26] MEDS ORDERED: ONDANSETRON HCL 4 MG ORAL DISINTEGRATING TAB PO PRN (16:00)
== END 2023-07-26 17:27 | disposition home or self-care (01) | DRG 853 ==
LOC: ER 12:33 → ERHOLD 15:05 → ICU 19:30 → MED/SURG3 07-25 18:08
PROVIDERS: ADMIT Internal Medicine; ATTEND Internal Medicine
PROC: 04V93DZ Restriction of Right Renal Artery with Intraluminal Device, Percutaneous Approach (ICD-10-PCS; principal; 2023-07-20)
PROC: B4161ZZ Fluoroscopy of Right Renal Artery using Low Osmolar Contrast (ICD-10-PCS; 2023-07-20)
PROC: 5A1D70Z Performance of Urinary Filtration, Intermittent, Less than 6 Hours Per Day (ICD-10-PCS; 2023-07-21)
PROC: 30233N1 Transfusion of Nonautologous Red Blood Cells into Peripheral Vein, Percutaneous Approach (ICD-10-PCS; 2023-07-21)
DX: R57.8 Other shock (principal); I50.23 Acute on chronic systolic (congestive) heart failure; J96.20 Acute and chronic respiratory failure, unspecified whether with hypoxia or hypercapnia; K68.3 Retroperitoneal hematoma; N18.6 End stage renal disease; D68.32 Hemorrhagic disorder due to extrinsic circulating anticoagulants; I13.2 Hypertensive heart and chronic kidney disease with heart failure and with stage 5 chronic kidney disease, or end stage renal disease; I48.20 Chronic atrial fibrillation, unspecified; S37.012A Minor contusion of left kidney, initial encounter; R18.8 Other ascites; N25.81 Secondary hyperparathyroidism of renal origin; N28.89 Other specified disorders of kidney and ureter; I95.9 Hypotension, unspecified; I35.0 Nonrheumatic aortic (valve) stenosis; M32.9 Systemic lupus erythematosus, unspecified; K80.20 Calculus of gallbladder without cholecystitis without obstruction; D63.1 Anemia in chronic kidney disease; E83.51 Hypocalcemia; E87.6 Hypokalemia; E66.9 Obesity, unspecified; Z79.82 Long term (current) use of aspirin; Z68.30 Body mass index [BMI] 30.0-30.9, adult; Z95.0 Presence of cardiac pacemaker; Z20.822 Contact with and (suspected) exposure to COVID-19; Z99.2 Dependence on renal dialysis; Z95.2 Presence of prosthetic heart valve
CPT/HCPCS: 36415; 37244; 71045; 71250; 74176; 74470; 75726; 80048; 80053; 82550; 82948; 83880; 84484; 84702; 85025; 85610; 85730; 86705; 86706; 86707; 86850; 86900; 86920; 87040; 93005; 93306; 94799; 99285; C1769; C1887; J2001; J2270; J2405; J2543; J2550; J3430; J7030; J7040; J7050; P9016; Q9967; U0002

== ENCOUNTER 2025-01-30 15:29 | Inpatient (IN) | payer MEDICARE ==
[~2025-01-30] VITALS: Ht 167.6 cm; Wt 85.3 kg
[~2025-01-30 15:29] MED LIST changes: +ACETAMINOPHEN325 M1 PO; +COREG6.25 MG PO; +GENTAMICIN SULF15 GM TP; +LEVOTHYROXINE112 MCG PO; +LIPITOR10 MG PO; +NIFEDIPINE ER30 M1 PO; +NORVASC10 MG PO; +PLAQUENIL200 MG PO; +RETACRIT10000 UNIT SC; +ROCALTROL0.25 MCG PO; +WARFARIN SODIUM5 MG PO; +vitamin d PO
[2025-01-30 16:55] LABS: BASOPHILS % 0.3 % (0.0-1.0); EOSINOPHILS # (AUTO) 0.1 (0.0-0.4); EOSINOPHILS % 0.9 % (0.0-6.0); HEMATOCRIT 31.6 % (34.2-44.1); HEMOGLOBIN 10.6 g/dL (12.0-16.0); LYMPHOCYTES # (AUTO) 1.1 (1.0-3.2); LYMPHOCYTES % 9.7 % (18.0-39.1); MEAN CORPUSCULAR HEMOGLOBIN 31.5 pg (28-32); MEAN CORPUSCULAR HGB CONC 33.5 g/dL (31-35); MEAN CORPUSCULAR VOLUME 93.8 fL (81-99); MONOCYTES # (AUTO) 0.6 (0.2-0.8); MONOCYTES % 5.5 % (4.4-11.3); NEUTROPHILS # (AUTO) 9.1 (2.1-6.9); NEUTROPHILS % 83.3 % (38.7-80.0); PLATELET COUNT 327 x10e3/uL (140-360); RED BLOOD COUNT 3.37 x10e6/uL (3.6-5.1); RED CELL DISTRIBUTION WIDTH 13.2 % (11.7-14.4); WHITE BLOOD COUNT 10.96 x10e3/uL (4.8-10.8)
[2025-01-30 17:14] LABS: INR 0.98; PROTHROMBIN TIME 13.6 seconds (11.9-14.5)
[2025-01-30 17:15] LABS: PARTIAL THROMBOPLASTIN TIME 45.8 seconds (23.8-35.5)
[2025-01-30 17:24] LABS: ALANINE AMINOTRANSFERASE 39 IU/L (0-55); ALBUMIN 2.6 g/dL (3.5-5.0); ALBUMIN/GLOBULIN RATIO 0.6 (0.8-2.0); ALKALINE PHOSPHATASE 99 IU/L (40-150); ANION GAP 18.7 mmol/L (8-16); BILIRUBIN,TOTAL 0.4 mg/dL (0.2-1.2); BLOOD UREA NITROGEN 38 mg/dL (7-26); BUN/CREATININE RATIO 3 (6-25); CALCIUM 9.2 mg/dL (8.4-10.2); CARBON DIOXIDE 27 mmol/L (22-29); CHLORIDE 92 mmol/L (98-107); CREATINE KINASE 50 IU/L (29-168); CREATININE, SERUM 11.42 mg/dL (0.57-1.11); EST GLOMERULAR FILTRATION RATE 4 ML/MIN (>=60); GLUCOSE 94 mg/dL (74-118); LIPASE 58 U/L (8-78); MAGNESIUM 1.9 MG/DL (1.3-2.1); POTASSIUM 3.7 mmol/L (3.5-5.1); SODIUM 134 mmol/L (136-145); TOTAL PROTEIN 6.7 g/dL (6.5-8.1)
[2025-01-30 17:30] LABS: TROPONIN I 0.085 ng/mL (0-0.300)
[2025-01-30] MEDS: Morphine 4mg INJECTION 4 MG/ML INJ IV ONE (19:28)
[2025-01-30] MEDS: ONDANSETRON HCL INJ 2MG/ML 2ML 2 MG/ML VIAL IV STA (19:29)
[2025-01-30] MEDS: Vancomycin IV 1 GM in SODIUM CHLORIDE 0.9% 250ML 250 ML IV ONE (19:30)
[2025-01-30 20:00] VITALS: BP 154/93; PULSE 88; RESP 18; TEMP 97.7; O2SAT 95
[2025-01-30 20:02] VITALS: PULSE 90; RESP 18; TEMP 98.6
[2025-01-30 21:00] VITALS: BP 102/66; PULSE 88; RESP 18; TEMP 97.7; O2SAT 99
[2025-01-30] MEDS: ONDANSETRON HCL INJ 2MG/ML 2ML 2 MG/ML VIAL IV PRN (21:30)
[2025-01-30] MEDS: HYDROMORPHONE 1MG/1ML INJ IV PRN (21:30)
[2025-01-30] MEDS ORDERED: RENVELA0.8 GM PO (23:59)
[2025-01-30] MEDS ORDERED: ATORVASTATIN CA10 MG PO (23:59)
[2025-01-31] VITALS (8 sets, daily range): BP systolic 130–149; BP diastolic 77–89; PULSE 79–85; RESP 17–18; TEMP 98.1–98.9; O2SAT 96–99
[2025-01-31 04:04] LABS: BODY FLUID APPEARANCE CLOUDY; BODY FLUID COLOR YELLOW; BODY FLUID TYPE PERITONEAL; RBC,BODY FLUID 0 cells/uL; WBC,BODY FLUID 8032 cells/uL
[2025-01-31 04:40] LABS: NEUTROPHILS,BODY FLUID 75 %
[2025-01-31 04:41] LABS: LYMPHOCYTES,BODY FLUID 23 %; MONO/MACROPHG,BODY FLUID 2 %; TOTAL CELLS COUNTED (DIFF) 100
[2025-01-31 06:33] LABS: CLARITY,URINE CLOUDY (CLEAR); COLOR,URINE YELLOW (YELLOW); LEUKOCYTE ESTERASE ,URINE NEGATIVE (NEGATIVE); NITRITE,URINE NEGATIVE (NEGATIVE); PH,URINE 8.5 (5 - 7)
[2025-01-31 06:34] LABS: BACTERIA,URINE MODERATE /HPF; BILIRUBIN,URINE NEGATIVE (NEGATIVE); EPITHELIAL CELLS,URINE MANY /LPF; GLUCOSE, URINE 1+ (NEGATIVE); KETONES,URINE NEGATIVE (NEGATIVE); PROTEIN,URINE DIPSTICK 2+ (NEGATIVE); URINE UROBILINOGEN 0.2 mg/dL (0.2 - 1)
[2025-01-31 06:42] LABS: BASOPHILS % 0.3 % (0.0-1.0); EOSINOPHILS # (AUTO) 0.1 (0.0-0.4); EOSINOPHILS % 1.3 % (0.0-6.0); HEMATOCRIT 25.8 % (34.2-44.1); HEMOGLOBIN 8.7 g/dL (12.0-16.0); LYMPHOCYTES # (AUTO) 1.1 (1.0-3.2); LYMPHOCYTES % 10.6 % (18.0-39.1); MEAN CORPUSCULAR HEMOGLOBIN 31.4 pg (28-32); MEAN CORPUSCULAR HGB CONC 33.7 g/dL (31-35); MEAN CORPUSCULAR VOLUME 93.1 fL (81-99); MONOCYTES # (AUTO) 0.7 (0.2-0.8); MONOCYTES % 6.6 % (4.4-11.3); NEUTROPHILS % 80.6 % (38.7-80.0); PLATELET COUNT 282 x10e3/uL (140-360); RED BLOOD COUNT 2.77 x10e6/uL (3.6-5.1); RED CELL DISTRIBUTION WIDTH 13.1 % (11.7-14.4); WHITE BLOOD COUNT 9.91 x10e3/uL (4.8-10.8)
[2025-01-31 06:56] LABS: TROPONIN I 0.081 ng/mL (0-0.300)
[2025-01-31 07:13] LABS: ALBUMIN/GLOBULIN RATIO 0.5 (0.8-2.0); ANION GAP 18.5 mmol/L (8-16); BILIRUBIN,TOTAL 0.4 mg/dL (0.2-1.2); CALCIUM 9.1 mg/dL (8.4-10.2); CREATININE, SERUM 11.8 mg/dL (0.57-1.11); POTASSIUM 4.5 mmol/L (3.5-5.1); TOTAL PROTEIN 5.8 g/dL (6.5-8.1)
[2025-01-31] MEDS: GENTAMICIN SULFATE 15 GM CR TP SCH (08:42)
[2025-01-31 15:24] LABS: TROPONIN I 0.084 ng/mL (0-0.300)
[2025-01-31] MEDS ORDERED: ACETAMINOPHEN 325 MG TAB PO PRN (15:45)
[2025-01-31] MEDS ORDERED: POLYETHYLENE GLYCOL 3350 17 GM PACK PO PRN (15:45)
[2025-01-31] MEDS: Vancomycin IV 1 GM in SODIUM CHLORIDE 0.9% 250ML 250 ML IV ONE (21:29)
[2025-02-01] VITALS (7 sets, daily range): BP systolic 132–171; BP diastolic 80–89; PULSE 72–88; RESP 17–20; TEMP 97.6–98.6; O2SAT 93–100
[2025-02-01 06:41] LABS: ANION GAP 17.1 mmol/L (8-16); CALCIUM 8.7 mg/dL (8.4-10.2); CREATININE, SERUM 12.75 mg/dL (0.57-1.11); POTASSIUM 4.1 mmol/L (3.5-5.1)
[2025-02-01 07:05] LABS: FREE T4 (FREE THYROXINE) 0.98 ng/dL (0.8-1.8); THYROID STIMULATING HORMONE 2.995 uIU/mL (0.350-4.940)
[2025-02-01] MEDS: Vancomycin IV 1 GM in SODIUM CHLORIDE 0.9% 250ML 250 ML IV SCH (17:12)
[2025-02-01] MEDS: EPOETIN ALFA-EPBX 10,000 UNIT/ML VIAL SC SCH (21:09)
[2025-02-01] MEDS: HYDRALAZINE HCL 20 MG/ML VIAL IV PRN (21:10)
[2025-02-02] VITALS (7 sets, daily range): BP systolic 134–152; BP diastolic 83–91; PULSE 72–102; RESP 16–18; TEMP 98.2–98.6; O2SAT 96–100
[2025-02-02 11:10] LABS: CALCIUM 8.3 mg/dL (8.7-10.2)
[2025-02-03] VITALS: BP 148/102; PULSE 104; RESP 17; TEMP 98.6; O2SAT 98
[2025-02-03 04:00] VITALS: BP 139/83; PULSE 97; RESP 18; TEMP 98.5; O2SAT 98
[2025-02-03 06:58] LABS: BASOPHILS % 0.4 % (0.0-1.0); EOSINOPHILS # (AUTO) 0.4 (0.0-0.4); EOSINOPHILS % 4.9 % (0.0-6.0); HEMATOCRIT 29.5 % (34.2-44.1); HEMOGLOBIN 9.8 g/dL (12.0-16.0); LYMPHOCYTES # (AUTO) 0.9 (1.0-3.2); LYMPHOCYTES % 12.4 % (18.0-39.1); MEAN CORPUSCULAR HEMOGLOBIN 31.6 pg (28-32); MEAN CORPUSCULAR HGB CONC 33.2 g/dL (31-35); MEAN CORPUSCULAR VOLUME 95.2 fL (81-99); MONOCYTES # (AUTO) 0.9 (0.2-0.8); MONOCYTES % 12.8 % (4.4-11.3); NEUTROPHILS # (AUTO) 4.9 (2.1-6.9); NEUTROPHILS % 68.4 % (38.7-80.0); PLATELET COUNT 318 x10e3/uL (140-360); RED CELL DISTRIBUTION WIDTH 13.1 % (11.7-14.4); WHITE BLOOD COUNT 7.19 x10e3/uL (4.8-10.8)
[2025-02-03 07:27] LABS: ANION GAP 20.4 mmol/L (8-16); CALCIUM 9.2 mg/dL (8.4-10.2); CREATININE, SERUM 13.43 mg/dL (0.57-1.11); PHOSPHORUS 7.1 MG/DL (2.3-4.7); POTASSIUM 4.4 mmol/L (3.5-5.1)
[2025-02-03 07:57] VITALS: BP 151/83; PULSE 101; RESP 19; TEMP 98.7; O2SAT 96
[2025-02-03 08:03] VITALS: BP 151/83; PULSE 101; RESP 19; TEMP 98.7; O2SAT 96
[2025-02-03 11:46] VITALS: BP 138/85; PULSE 96; RESP 17; TEMP 97.9; O2SAT 98
[2025-02-03 16:17] VITALS: BP 157/86; PULSE 83; RESP 16; TEMP 97.2; O2SAT 100
== END 2025-02-03 18:00 | disposition home or self-care (01) | DRG 919 ==
LOC: ER 16:43 → ERHOLD 18:43 → MED/SURG3 20:22
PROVIDERS: ADMIT Internal Medicine; ATTEND Internal Medicine
DX: T85.71XA Infection and inflammatory reaction due to peritoneal dialysis catheter, initial encounter (principal); K65.9 Peritonitis, unspecified; N18.6 End stage renal disease; I12.0 Hypertensive chronic kidney disease with stage 5 chronic kidney disease or end stage renal disease; I42.9 Cardiomyopathy, unspecified; D63.1 Anemia in chronic kidney disease; K74.60 Unspecified cirrhosis of liver; Z99.2 Dependence on renal dialysis; E78.5 Hyperlipidemia, unspecified; M32.9 Systemic lupus erythematosus, unspecified; E21.1 Secondary hyperparathyroidism, not elsewhere classified; B95.7 Other staphylococcus as the cause of diseases classified elsewhere; Z79.890 Hormone replacement therapy; Z79.69 Long term (current) use of other immunomodulators and immunosuppressants; I25.2 Old myocardial infarction; Z95.1 Presence of aortocoronary bypass graft; Z95.2 Presence of prosthetic heart valve; Z82.49 Family history of ischemic heart disease and other diseases of the circulatory system; Y83.1 Surgical operation with implant of artificial internal device as the cause of abnormal reaction of the patient, or of later complication, without mention of misadventure at the time of the procedure
CPT/HCPCS: 36415; 74176; 76705; 80048; 80053; 80202; 81001; 82550; 83690; 83735; 83970; 84100; 84439; 84443; 84484; 84702; 85025; 85610; 85730; 87040; 87070; 87205; 89051; 93005; 94760; 99284; J0360; J0692; J1171; J2270; J2405; J7050